=== PATIENT | female | born 1935 | race Caucasian/White ===

== ENCOUNTER 2016-08-02 16:05 | Inpatient (IN) | payer OTHER ==
[~2016-08-02] VITALS: Ht 162.6 cm; Wt 72.1 kg
[2016-08-02 17:46] VITALS: BP 143/104
[2016-08-02 19:00] VITALS: BP 149/66
--- NOTE | 2016-08-02 19:57 | PDOC1 ---
History and Physical Source Source: Patient Past Medical History Cardiovascular: AFIB Family History Family History: Other (unknown to pt) Social History Smoke: No ALCOHOL: none Current Medications Current Medications Current Medications Medications (Trade) Dose Ordered Sig/Juan Start Time Stop Time Status Last Admin Dose Admin Sodium Chloride (Iv Sodium Chloride 0.9% 1000ml Bag) 1,000 ml @ 75 mls/hr [id number] 08/02/16 19:15 Allergies Allergies Allergies Coded Allergies Type Severity Reaction Last Updated Verified No Known Drug Allergies 08/02/16 No ROS Review of System CONSTITUTIONAL: fever or chills EYES: No recent changes SKIN: No rash or itching CARDIOVASCULAR: No chest pain, syncope, palpitations, or edema RESPIRATORY: No SOB or cough GASTROINTESTINAL: No nausea, vomiting or abdominal pain NEUROLOGICAL: No headaches or weakness ENDOCRINE: No cold or heat intolerance GENITOURINARY: frequency of urination MUSCULOSKELETAL: No back pain or joint pain LYMPHATICS: No enlarged lymph nodes PSYCHIATRIC: No anxiety or depression Physical Exam Physical Exam GEN.: No apparent distress. Alert and oriented. HEENT: Head is normocephalic, atraumatic NECK: Supple. LUNGS: Clear to auscultation. HEART: RRR, S1, S2 present. Peripheral pulses intact ABDOMEN: Soft, nontender. Positive bowel sounds. EXTREMITIES: Without any cyanosis. NEUROLOGIC: Normal speech, normal tone PSYCHIATRIC: Normal affect, normal mood. SKIN: Vitals Vitals Vital Signs Date Time Temp Pulse Resp B/P Pulse Ox O2 Delivery O2 Flow Rate FiO2 08/02/16 17:46 97.6 85 16 143/104 99 Room Air 97.6 VTE Prophylaxis Ordered VTE Prophylaxis Devices: No VTE Pharmacological Prophylaxi: No ABDI LEWIS MD August 02, 2016 19:57
[2016-08-02] MEDS ORDERED: ALBUTEROL SULFATE 2.5 MG/3 ML NEBU. NEB PRN (20:00)
[2016-08-02] MEDS ORDERED: ONDANSETRON PF 4 MG/2 ML VIAL. IV PRN (20:00)
[2016-08-02] MEDS ORDERED: SODIUM POLYSTYRENE SULFONATE 15 GM/60 ML ORAL.SUSP. PO ONE (20:00)
[2016-08-02] MEDS ORDERED: HYDROCODONE/APAP 5/325MG TABLET. PO PRN (20:00)
[2016-08-02] MEDS ORDERED: hydrALAZINE 20 MG/ML VIAL. IVP PRN (20:00)
[2016-08-02] MEDS ORDERED: LEVOFLOXACIN PER PHARMACY MC PRN (20:00)
[2016-08-02 20:06] LABS: BASO % 0 % (0-3); EOS % 2 % (0-3); HEMATOCRIT 29.1 % (36.0-47.0); HEMOGLOBIN 9.9 g/dL (12.0-15.5); LYMPH # 0.9 x10^3/uL (1.0-4.8); LYMPH % 7 % (24-48); MEAN CORPUSCULAR HEMOGLOBIN 30 pg (25-35); MEAN CORPUSCULAR HGB CONC 34 g/dL (31-37); MEAN CORPUSCULAR VOLUME 88 fL (79-100); MONO % 12 % (0-9); NEUT % 79 % (31-73); PLATELET COUNT 254 x10^3/uL (140-400); RED BLOOD COUNT 3.29 x10^6/uL (3.50-5.40); RED CELL DISTRIBUTION WIDTH 14.7 % (11.5-14.5); WHITE BLOOD COUNT 12.3 x10^3/uL (4.0-11.0)
[2016-08-02 20:20] LABS: ALBUMIN 2.9 g/dL (3.4-5.0); ALBUMIN/GLOBULIN RATIO 0.7 (1.0-1.7); CALCIUM 8.8 mg/dL (8.5-10.1); CREATININE 1.9 mg/dL (0.6-1.0); GFR 25.3; POTASSIUM 4.2 mmol/L (3.5-5.1); TOTAL BILIRUBIN 0.5 mg/dL (0.2-1.0); TOTAL PROTEIN 7.2 g/dL (6.4-8.2)
[2016-08-02] MEDS: IV NORMAL SALINE 1000ML BAG 1,000 ML IV SCH (20:35)
[2016-08-02 20:53] LABS: BILIRUBIN,URINE NEGATIVE (NEG); GLUCOSE,URINE NEGATIVE (NEG); NITRITE,URINE NEGATIVE (NEG); PH,URINE 6.5; PROTEIN,URINE 30 mg/dL (NEG-TRACE); UROBILINOGEN,URINE 0.2 mg/dL (0.2 mg/dL)
[2016-08-02 20:59] LABS: BACTERIA,URINE MANY /HPF (0-FEW); SQUAMOUS EPITHELIAL CELL,UR MOD /LPF; WBC,URINE TNTC /HPF (0-4)
[2016-08-02 21:09] LABS: CALCIUM 8.6 mg/dL (8.5-10.1); GFR 23.9; POTASSIUM 4.2 mmol/L (3.5-5.1)
--- NOTE | 2016-08-02 22:05 | HP ---
ADMIT DATE: 08/02/2016 CHIEF COMPLAINT: Fever, chills, and risk of falls. HISTORY OF PRESENT ILLNESS: An 81-year-old female patient presented to the primary care doctor's office, Dr. Oakley, for complaints of fevers, chills, and not feeling well for 2 days. Reportedly, the patient is having symptoms everyday and symptoms getting better with ibuprofen. She had an initial workup showed some acute kidney injury with mild hyperkalemia. PCP office called me to admit the patient for increased risk of falls and suspected urinary tract infections and dehydration. Upon my examination, the patient is resting comfortably in the chair. Denies any active symptoms; however, she admitted that she is having fevers and some urinary frequency. Denies any other symptoms. She is not able to provide me good past history; however, she had some atrial fibrillation, was on a blood thinner, but she did not recall her home medications, she will get the list tomorrow morning. PAST MEDICAL HISTORY: Hypertension and AFib. FAMILY HISTORY: Unknown. PAST SURGICAL HISTORY: Unknown. SOCIAL HISTORY: No smoking, no alcohol, no drug abuse. Lives with . No sick contacts around her. LABORATORY DATA: Sodium is 130, potassium is 5.4, chloride is 102, carbon dioxide 23, calcium is 9.5, protein is 7.1, alkaline phosphatase 55, AST 16, ALT 10, creatinine 1.72, BUN is 32, glucose 97, and GFR is 27. ASSESSMENT: 1. Suspected urinary tract infections. 2. Acute kidney injury, unknown baseline, creatinine 1.72. 3. Physical debility and fall risk. 4. Dehydration. 5. Hyperkalemia. Potassium 5.4 at arrival. 6. Severe Hyponatremia PLAN: 1. We will continue IV hydration 75 mL hour and start her on Levaquin, pharmacy to dose for suspected urinary tract infections. Urine cultures and UA has been ordered.consult nephro, monitor Na in am , no mental state changes. 2. Physical therapy and occupation therapy. 3. The patient will bring her home medications list in the a.m. 4. I will give her Kayexalate one-time dose. Repeat potassium in a.m. 5. Also ordered CBC and CMP now. 6. Supportive care. 7. prognosis guarded. ABDI LEWIS MD DR: GLORIA/marie JOB#: [id number] / [id number] JAMIE
[2016-08-02 23:20] VITALS: BP 144/62
[2016-08-03 02:57] VITALS: BP 128/64
--- NOTE | 2016-08-03 05:42 | ACF ---
Admission Forms Criteria URINARY COMPLICATIONS Clinical Indications for Inpatient Care (Place 'X' for any and all applicable criteria): Ongoing inpatient care may be indicated for urinary complications with ANY ONE of the following: [X]I. Urinary tract infection requiring inpatient care as indicated by ANY ONE of the following(8)(19)(20): [ ]a) Severe symptoms (eg, high fever, severe pain) [ ]b) Vomiting or dehydration requiring ongoing inpatient care [X]c) IV antibiotic needs that cannot be managed at lower level of care [ ]d) Hemodynamic instability [ ]e) Obstruction of collecting system by stone or tumor [ ]II. Urinary retention requiring drainage or surgery (3)(4)(5)(17)(18) [ ]III. Renal failure (Use Renal Failure Criteria for further information.) [ ]IV. Oliguria(30) [ ]V. Post obstructive diuresis requiring close monitoring of urine output and intravenous compensation for excessive fluid losses(33) Extended stay beyond goal length of stay for primary condition may be needed until ALL of the following are present(3)(4)(5)(8): [ ]a) Renal function (creatinine) at baseline, or daily decreases in creatinine consistent with renal function return [ ]b) Voiding adequately or with urinary catheter or percutaneous suprapubic tube and management regimen in place that is performable at lower level of care. [ ]c) Urine output adequate [ ]d) Fever absent or resolving [ ]e) Infection absent or treatable at next level of care The original [employer] content created by [employer] has been revised. The portions of the content which have been revised are identified through the use of italic text or in bold, and [facility] has neither reviewed nor approved the modified material. All other unmodified content is copyright [employer] Please see references footnoted in the original [facility] edition 2016 Admission Criteria Met?: Yes DEEPALI LUNA August 03, 2016 05:42
[2016-08-03] MEDS: IV NORMAL SALINE 1000ML BAG 1,000 ML IV SCH ×3 (06:22→20:43)
[2016-08-03] MEDS: ACETAMINOPHEN 325 MG TABLET. PO PRN ×3 (06:31→20:41)
[2016-08-03 07:00] VITALS: BP 136/53
[2016-08-03 07:16] LABS: BASO % 0 % (0-3); EOS % 1 % (0-3); HEMATOCRIT 27.6 % (36.0-47.0); HEMOGLOBIN 9.4 g/dL (12.0-15.5); LYMPH # 0.8 x10^3/uL (1.0-4.8); LYMPH % 7 % (24-48); MEAN CORPUSCULAR HEMOGLOBIN 30 pg (25-35); MEAN CORPUSCULAR HGB CONC 34 g/dL (31-37); MEAN CORPUSCULAR VOLUME 89 fL (79-100); MONO % 13 % (0-9); NEUT % 78 % (31-73); PLATELET COUNT 235 x10^3/uL (140-400); RED BLOOD COUNT 3.09 x10^6/uL (3.50-5.40); RED CELL DISTRIBUTION WIDTH 14.3 % (11.5-14.5); WHITE BLOOD COUNT 10.6 x10^3/uL (4.0-11.0)
[2016-08-03 07:26] LABS: CALCIUM 7.9 mg/dL (8.5-10.1); CREATININE 1.8 mg/dL (0.6-1.0); GFR 26.9; POTASSIUM 3.9 mmol/L (3.5-5.1)
[2016-08-03 11:00] VITALS: BP 140/56
[2016-08-03] MEDS ORDERED: MAGNESIUM SULFATE 2GM 50 ML IV PRN (12:30)
--- NOTE | 2016-08-03 12:33 | PDOC2 ---
CONSULT Date of Consult Date of Consult DATE: 08/03/16 TIME: 12:32 Reason for Consult Reason for Consult: HypoNAtremia / AMY Referring Physician Referring Physician: Dr Duron Identification/Chief Complaint Chief Complaint confusion, falls Problems: Source Source: Patient History of Present Illness Reason for Visit: as dictated Past Medical History Cardiovascular: AFIB Past Surgical History Past Surgical History: Pacemaker, Cystoscopy Family History Family History: Other (unknown to pt) Social History No ALCOHOL: none Drugs: None Lives: with Family Current Problem List Problem List Problems Medical Problems: (1) Dehydration Status: Acute (2) Hyperkalemia Status: Acute (3) Hyponatremia Status: Acute Current Medications Current Medications Current Medications Sodium Chloride (Iv Sodium Chloride 0.9% 1000ml Bag) 1,000 ml @ 125 mls/hr Q8H IV Last administered on 08/03/16 06:22; Start 08/02/16 at 19:15 Acetaminophen (Tylenol) 325 mg PRN Q6HRS PRN PO MILD PAIN / TEMP Last administered on 08/03/16 06:31; Start 08/02/16 at 20:00 Acetaminophen/ Hydrocodone Bitart (Lortab 5/325) 1 tab PRN Q6HRS PRN PO MODERATE TO SEVERE PAIN; Start 08/02/16 at 20:00 Hydralazine HCl (Apresoline) 10 mg PRN Q4HRS PRN IVP ELEVATED BP, SEE COMMENTS ; Start 08/02/16 at 20:00 Ondansetron HCl (Zofran) 4 mg PRN Q8HRS PRN IV NAUSEA/VOMITING; Start 08/02/16 at 20:00; Stop 08/03/16 at 08:59; Status DC Albuterol Sulfate (Ventolin Neb Soln) 2.5 mg PRN Q4HRS PRN NEB SHORTNESS OF BREATH; Start 08/02/16 at 20:00 Sodium Polystyrene Sulfonate (Kayexalate) 15 gm 1X ONCE PO Last administered on 08/02/16 22:22; Start 08/02/16 at 20:00; Stop 08/02/16 at 20:02; Status DC Levofloxacin/ Dextrose 1 each 1 each PRN DAILY PRN MC SEE COMMENTS; Start at 20:00 Levofloxacin/ Dextrose (LEVAQUIN 250mg PREMIX) 50 ml @ 50 mls/hr Q24H IV Last administered on 08/02/16t 22:24; Start 08/02/16 at 21:00 Ondansetron HCl (Zofran) 4 mg PRN Q6HRS PRN IV NAUSEA/VOMITING; Start 08/03/16 at 20:00 Allergies Allergies: Coded Allergies: No Known Drug Allergies (Unverified , 08/02/16) ROS Review of System GEN: + Fevers + Chills + weakness EYES: no new Visual Complaints ENT: no EN Drainage no Hearing deficiets CVS: no Orthopnea no CP RESP: no SOB no ROSARIO GI: min Nausea no Vomiting : + current Dysuria occ Urgency HEME: no easy bruising no Palp Ly Nodes NEURO no Focal Weakness no Sz PSYCH: no Suicidal Ideation no Depression SKIN: no Rashes ENDO: no Polyuria or Polydipsia no Hot/Cold Intolerance MU SK: ch Arthraigia min Myalgia Physical Exam Physical Exam General Appearance: Awake Alert Oriented x 3 In no Distress Eyes: VIsion Unchanged Conjunctiva Normal EN: No EN Drainage Mucous Memb. moist Neck: no JVD no JVP Supple no Thyromegaly CVS: S1 S2 ?soft Murmur No Gallop No Rub no Edema Resp: no Rales no Rhonchi no Acc. Muscle use GI: BAS +ve NO Bruit Non Tender Non Distended : no CVA tenderness; ?min Suprapubic Tenderness SKIN: no Rashes Breast Exam deferred Mu.Sk: Adequate ROM no Muscle Atrophy Heme: Unable to palpate Obvious LAD no palp Splenomegaly NEURO: Good Strength and Tone Cranial Nerves II - XII grossly intact Psych: not Depressed no Active hallucination Vital Signs Vital Signs Date Time Temp Pulse Resp B/P Pulse Ox O2 Delivery O2 Flow Rate FiO2 08/03/16 11:00 97.4 60 12 140/56 99 Room Air 97.4 Assessment & Plan ARF/ ? AIN and Pyelo. Other etios including Rhabdo due to falls, Vol depeltion, Abx asso AIN etc cannot be ruled out. Current FLuid and E-lyte status does not necessitate emergent need for Dialysis. Will re-evaluate for Dialysis in am SEv HypoNatremia - suspect due to Vol depeltion - Check CXR, responding to IV NS Protein Gap - will check PEPs HypoALb - check PreAlb ^K - resolved with Kayexalate. Pt is on Amiloride (unclear etio) and ARB at home Anemia: check Iron; may need Epogen Transfuse with next HD as needed. HTN: Current BP meds reviewed. See orders for changes. UTI - await C and S Discussed Plan of Care and prognosis etc. at length with family. Labs Labs Laboratory Tests Test 08/02/16 19:25 08/02/16 20:00 08/02/16 20:50 08/03/16 07:00 White Blood Count 12.3x10^3/uL (4.0-11.0) 10.6x10^3/uL (4.0-11.0) Red Blood Count 3.29x10^6/uL (3.50-5.40) 3.09x10^6/uL (3.50-5.40) Hemoglobin 9.9g/dL (12.0-15.5) 9.4g/dL (12.0-15.5) Hematocrit 29.1% (36.0-47.0) 27.6% (36.0-47.0) Mean Corpuscular Volume 88fL (79-100) 89fL (79-100) Mean Corpuscular Hemoglobin 30pg (25-35) 30pg (25-35) Mean Corpuscular Hemoglobin Concent 34g/dL (31-37) 34g/dL (31-37) Red Cell Distribution Width 14.7% (11.5-14.5) 14.3% (11.5-14.5) Platelet Count 254x10^3/uL (140-400) 235x10^3/uL (140-400) Neutrophils (%) (Auto) 79% (31-73) 78% (31-73) Lymphocytes (%) (Auto) 7% (24-48) 7% (24-48) Monocytes (%) (Auto) 12% (0-9) 13% (0-9) Eosinophils (%) (Auto) 2% (0-3) 1% (0-3) Basophils (%) (Auto) 0% (0-3) 0% (0-3) Neutrophils # (Auto) 9.7x10^3uL (1.8-7.7) 8.3x10^3uL (1.8-7.7) Lymphocytes # (Auto) 0.9x10^3/uL (1.0-4.8) 0.8x10^3/uL (1.0-4.8) Monocytes # (Auto) 1.4x10^3/uL (0.0-1.1) 1.4x10^3/uL (0.0-1.1) Eosinophils # (Auto) 0.2x10^3/uL (0.0-0.7) 0.1x10^3/uL (0.0-0.7) Basophils # (Auto) 0.0x10^3/uL (0.0-0.2) 0.0x10^3/uL (0.0-0.2) Sodium Level 119mmol/L (136-145) 119mmol/L (136-145) 123mmol/L (136-145) Potassium Level 4.2mmol/L (3.5-5.1) 4.2mmol/L (3.5-5.1) 3.9mmol/L (3.5-5.1) Chloride Level 89mmol/L (98-107) 90mmol/L (98-107) 93mmol/L (98-107) Carbon Dioxide Level 22mmol/L (21-32) 22mmol/L (21-32) 21mmol/L (21-32) Anion Gap 8 (6-14) 7 (6-14) 9 (6-14) Blood Urea Nitrogen 28mg/dL (7-20) 27mg/dL (7-20) 25mg/dL (7-20) Creatinine 1.9mg/dL (0.6-1.0) 2.0mg/dL (0.6-1.0) 1.8mg/dL (0.6-1.0) Estimated GFR (Cockcroft-Gault) 25.3 23.9 26.9 BUN/Creatinine Ratio 15 (6-20) Glucose Level 126mg/dL (70-99) 131mg/dL (70-99) 93mg/dL (70-99) Calcium Level 8.8mg/dL (8.5-10.1) 8.6mg/dL (8.5-10.1) 7.9mg/dL (8.5-10.1) Total Bilirubin 0.5mg/dL (0.2-1.0) Aspartate Amino Transf (AST/SGOT) 18U/L (15-37) Alanine Aminotransferase (ALT/SGPT) 17U/L (14-59) Alkaline Phosphatase 66U/L (46-116) Total Protein 7.2g/dL (6.4-8.2) Albumin 2.9g/dL (3.4-5.0) Albumin/Globulin Ratio 0.7 (1.0-1.7) Urine Collection Type Unknown Urine Color Yellow Urine Clarity Turbid Urine pH 6.5 Urine Specific [place] <=1.005 Urine Protein 30mg/dL (NEG-TRACE) Urine Glucose (UA) Negativemg/dL (NEG) Urine Ketones (Stick) Negativemg/dL (NEG) Urine Blood Moderate (NEG) Urine Nitrite Negative (NEG) Urine Bilirubin Negative (NEG) Urine Urobilinogen Dipstick 0.2mg/dL (0.2 mg/dL) Urine Leukocyte Esterase Large (NEG) Urine RBC 1-2/HPF (0-2) Urine WBC Tntc/HPF (0-4) Urine Squamous Epithelial Cells Mod/LPF Urine Bacteria Many/HPF (0-FEW) Urine Mucus Mod/LPF Laboratory Tests Test 08/02/16 19:25 08/02/16 20:00 08/02/16 20:50 08/03/16 07:00 White Blood Count 12.3x10^3/uL (4.0-11.0) 10.6x10^3/uL (4.0-11.0) Red Blood Count 3.29x10^6/uL (3.50-5.40) 3.09x10^6/uL (3.50-5.40) Hemoglobin 9.9g/dL (12.0-15.5) 9.4g/dL (12.0-15.5) Hematocrit 29.1% (36.0-47.0) 27.6% (36.0-47.0) Mean Corpuscular Volume 88fL (79-100) 89fL (79-100) Mean Corpuscular Hemoglobin 30pg (25-35) 30pg (25-35) Mean Corpuscular Hemoglobin Concent 34g/dL (31-37) 34g/dL (31-37) Red Cell Distribution Width 14.7% (11.5-14.5) 14.3% (11.5-14.5) Platelet Count 254x10^3/uL (140-400) 235x10^3/uL (140-400) Neutrophils (%) (Auto) 79% (31-73) 78% (31-73) Lymphocytes (%) (Auto) 7% (24-48) 7% (24-48) Monocytes (%) (Auto) 12% (0-9) 13% (0-9) Eosinophils (%) (Auto) 2% (0-3) 1% (0-3) Basophils (%) (Auto) 0% (0-3) 0% (0-3) Neutrophils # (Auto) 9.7x10^3uL (1.8-7.7) 8.3x10^3uL (1.8-7.7) Lymphocytes # (Auto) 0.9x10^3/uL (1.0-4.8) 0.8x10^3/uL (1.0-4.8) Monocytes # (Auto) 1.4x10^3/uL (0.0-1.1) 1.4x10^3/uL (0.0-1.1) Eosinophils # (Auto) 0.2x10^3/uL (0.0-0.7) 0.1x10^3/uL (0.0-0.7) Basophils # (Auto) 0.0x10^3/uL (0.0-0.2) 0.0x10^3/uL (0.0-0.2) Sodium Level 119mmol/L (136-145) 119mmol/L (136-145) 123mmol/L (136-145) Potassium Level 4.2mmol/L (3.5-5.1) 4.2mmol/L (3.5-5.1) 3.9mmol/L (3.5-5.1) Chloride Level 89mmol/L (98-107) 90mmol/L (98-107) 93mmol/L (98-107) Carbon Dioxide Level 22mmol/L (21-32) 22mmol/L (21-32) 21mmol/L (21-32) Anion Gap 8 (6-14) 7 (6-14) 9 (6-14) Blood Urea Nitrogen 28mg/dL (7-20) 27mg/dL (7-20) 25mg/dL (7-20) Creatinine 1.9mg/dL (0.6-1.0) 2.0mg/dL (0.6-1.0) 1.8mg/dL (0.6-1.0) Estimated GFR (Cockcroft-Gault) 25.3 23.9 26.9 BUN/Creatinine Ratio 15 (6-20) Glucose Level 126mg/dL (70-99) 131mg/dL (70-99) 93mg/dL (70-99) Calcium Level 8.8mg/dL (8.5-10.1) 8.6mg/dL (8.5-10.1) 7.9mg/dL (8.5-10.1) Total Bilirubin 0.5mg/dL (0.2-1.0) Aspartate Amino Transf (AST/SGOT) 18U/L (15-37) Alanine Aminotransferase (ALT/SGPT) 17U/L (14-59) Alkaline Phosphatase 66U/L (46-116) Total Protein 7.2g/dL (6.4-8.2) Albumin 2.9g/dL (3.4-5.0) Albumin/Globulin Ratio 0.7 (1.0-1.7) Urine Collection Type Unknown Urine Color Yellow Urine Clarity Turbid Urine pH 6.5 Urine Specific [place] <=1.005 Urine Protein 30mg/dL (NEG-TRACE) Urine Glucose (UA) Negativemg/dL (NEG) Urine Ketones (Stick) Negativemg/dL (NEG) Urine Blood Moderate (NEG) Urine Nitrite Negative (NEG) Urine Bilirubin Negative (NEG) Urine Urobilinogen Dipstick 0.2mg/dL (0.2 mg/dL) Urine Leukocyte Esterase Large (NEG) Urine RBC 1-2/HPF (0-2) Urine WBC Tntc/HPF (0-4) Urine Squamous Epithelial Cells Mod/LPF Urine Bacteria Many/HPF (0-FEW) Urine Mucus Mod/LPF DAVIE STUART MD August 03, 2016 12:33
[2016-08-03 13:02] LABS: URIC ACID 3.6 mg/dL (2.6-6.0)
--- NOTE | 2016-08-03 13:32 | RAD ---
Renal ultrasound, 08/03/2016: History: Acute on chronic renal failure The right kidney measures 10.0 cm in length while the left kidney measures 10.8 cm. There is mild bilateral renal cortical scarring. No renal mass is seen. There is no evidence of hydronephrosis. Limited views of the partially filled urinary bladder show no abnormality. IMPRESSION: 1. Mild renal cortical scarring. 2. No evidence of renal obstruction.
[2016-08-03 13:35] LABS: % SAT IRON 5 % (15-34); IRON,SERUM 15 ug/dL (50-170)
--- NOTE | 2016-08-03 14:00 | PDOC ---
PROGRESS NOTES Chief Complaint Chief Complaint 1. Suspected urinary tract infections. 2. Acute kidney injury, unknown baseline, creatinine 1.72. 3. Physical debility and fall risk. 4. Dehydration. 5. Hyperkalemia. Potassium 5.4 at arrival. 6. Severe Hyponatremia History of Present Illness History of Present Illness na 123 Crea 1,8 Renal consulted Renal US just done at bedside On elliquis for indwelling pacer - placed 2 yrs ago Still having loose stools -had kayexylate for the hyperkal PLAn: CPM ff up renal US LAbs haydee If better, [facility] Vit[facility] Vitals Vital Signs Date Time Temp Pulse Resp B/P Pulse Ox O2 Delivery O2 Flow Rate FiO2 08/03/16 11:00 97.4 60 12 140/56 99 Room Air 97.4 Physical Exam General: Alert, Oriented X3, Cooperative, No acute distress Heart: Regular rate, Normal S1, Normal S2, No murmurs Lungs: Clear Abdomen: Normal bowel sounds, Soft, No tenderness, No hepatosplenomegaly Extremities: No clubbing, No cyanosis, No edema, Normal pulses Skin: No rashes Labs LABS Laboratory Tests Test 08/02/16 19:25 08/02/16 20:00 08/02/16 20:50 08/03/16 07:00 White Blood Count 12.3x10^3/uL (4.0-11.0) 10.6x10^3/uL (4.0-11.0) Red Blood Count 3.29x10^6/uL (3.50-5.40) 3.09x10^6/uL (3.50-5.40) Hemoglobin 9.9g/dL (12.0-15.5) 9.4g/dL (12.0-15.5) Hematocrit 29.1% (36.0-47.0) 27.6% (36.0-47.0) Mean Corpuscular Volume 88fL (79-100) 89fL (79-100) Mean Corpuscular Hemoglobin 30pg (25-35) 30pg (25-35) Mean Corpuscular Hemoglobin Concent 34g/dL (31-37) 34g/dL (31-37) Red Cell Distribution Width 14.7% (11.5-14.5) 14.3% (11.5-14.5) Platelet Count 254x10^3/uL (140-400) 235x10^3/uL (140-400) Neutrophils (%) (Auto) 79% (31-73) 78% (31-73) Lymphocytes (%) (Auto) 7% (24-48) 7% (24-48) Monocytes (%) (Auto) 12% (0-9) 13% (0-9) Eosinophils (%) (Auto) 2% (0-3) 1% (0-3) Basophils (%) (Auto) 0% (0-3) 0% (0-3) Neutrophils # (Auto) 9.7x10^3uL (1.8-7.7) 8.3x10^3uL (1.8-7.7) Lymphocytes # (Auto) 0.9x10^3/uL (1.0-4.8) 0.8x10^3/uL (1.0-4.8) Monocytes # (Auto) 1.4x10^3/uL (0.0-1.1) 1.4x10^3/uL (0.0-1.1) Eosinophils # (Auto) 0.2x10^3/uL (0.0-0.7) 0.1x10^3/uL (0.0-0.7) Basophils # (Auto) 0.0x10^3/uL (0.0-0.2) 0.0x10^3/uL (0.0-0.2) Sodium Level 119mmol/L (136-145) 119mmol/L (136-145) 123mmol/L (136-145) Potassium Level 4.2mmol/L (3.5-5.1) 4.2mmol/L (3.5-5.1) 3.9mmol/L (3.5-5.1) Chloride Level 89mmol/L (98-107) 90mmol/L (98-107) 93mmol/L (98-107) Carbon Dioxide Level 22mmol/L (21-32) 22mmol/L (21-32) 21mmol/L (21-32) Anion Gap 8 (6-14) 7 (6-14) 9 (6-14) Blood Urea Nitrogen 28mg/dL (7-20) 27mg/dL (7-20) 25mg/dL (7-20) Creatinine 1.9mg/dL (0.6-1.0) 2.0mg/dL (0.6-1.0) 1.8mg/dL (0.6-1.0) Estimated GFR (Cockcroft-Gault) 25.3 23.9 26.9 BUN/Creatinine Ratio 15 (6-20) Glucose Level 126mg/dL (70-99) 131mg/dL (70-99) 93mg/dL (70-99) Calcium Level 8.8mg/dL (8.5-10.1) 8.6mg/dL (8.5-10.1) 7.9mg/dL (8.5-10.1) Total Bilirubin 0.5mg/dL (0.2-1.0) Aspartate Amino Transf (AST/SGOT) 18U/L (15-37) Alanine Aminotransferase (ALT/SGPT) 17U/L (14-59) Alkaline Phosphatase 66U/L (46-116) Total Protein 7.2g/dL (6.4-8.2) Albumin 2.9g/dL (3.4-5.0) Albumin/Globulin Ratio 0.7 (1.0-1.7) Urine Collection Type Unknown Urine Color Yellow Urine Clarity Turbid Urine pH 6.5 Urine Specific [place] <=1.005 Urine Protein 30mg/dL (NEG-TRACE) Urine Glucose (UA) Negativemg/dL (NEG) Urine Ketones (Stick) Negativemg/dL (NEG) Urine Blood Moderate (NEG) Urine Nitrite Negative (NEG) Urine Bilirubin Negative (NEG) Urine Urobilinogen Dipstick 0.2mg/dL (0.2 mg/dL) Urine Leukocyte Esterase Large (NEG) Urine RBC 1-2/HPF (0-2) Urine WBC Tntc/HPF (0-4) Urine Squamous Epithelial Cells Mod/LPF Urine Bacteria Many/HPF (0-FEW) Urine Mucus Mod/LPF Uric Acid 3.6mg/dL (2.6-6.0) Iron Level 15ug/dL (50-170) Total Iron Binding Capacity 310ug/dL (250-450) Iron Saturation 5% (15-34) Creatine Kinase 52U/L (26-192) Review of Systems Review of Systems loose stools, all else is neg Assessment and Plan Assessmemt and Plan Problems Medical Problems: (1) Dehydration Status: Acute (2) Hyperkalemia Status: Acute (3) Hyponatremia Status: Acute Problems: Comment Review of Relevant I have reviewed the following items elie (where applicable) has been applied. Labs Laboratory Tests Test 08/02/16 19:25 08/02/16 20:00 08/02/16 20:50 08/03/16 07:00 White Blood Count 12.3x10^3/uL (4.0-11.0) 10.6x10^3/uL (4.0-11.0) Red Blood Count 3.29x10^6/uL (3.50-5.40) 3.09x10^6/uL (3.50-5.40) Hemoglobin 9.9g/dL (12.0-15.5) 9.4g/dL (12.0-15.5) Hematocrit 29.1% (36.0-47.0) 27.6% (36.0-47.0) Mean Corpuscular Volume 88fL (79-100) 89fL (79-100) Mean Corpuscular Hemoglobin 30pg (25-35) 30pg (25-35) Mean Corpuscular Hemoglobin Concent 34g/dL (31-37) 34g/dL (31-37) Red Cell Distribution Width 14.7% (11.5-14.5) 14.3% (11.5-14.5) Platelet Count 254x10^3/uL (140-400) 235x10^3/uL (140-400) Neutrophils (%) (Auto) 79% (31-73) 78% (31-73) Lymphocytes (%) (Auto) 7% (24-48) 7% (24-48) Monocytes (%) (Auto) 12% (0-9) 13% (0-9) Eosinophils (%) (Auto) 2% (0-3) 1% (0-3) Basophils (%) (Auto) 0% (0-3) 0% (0-3) Neutrophils # (Auto) 9.7x10^3uL (1.8-7.7) 8.3x10^3uL (1.8-7.7) Lymphocytes # (Auto) 0.9x10^3/uL (1.0-4.8) 0.8x10^3/uL (1.0-4.8) Monocytes # (Auto) 1.4x10^3/uL (0.0-1.1) 1.4x10^3/uL (0.0-1.1) Eosinophils # (Auto) 0.2x10^3/uL (0.0-0.7) 0.1x10^3/uL (0.0-0.7) Basophils # (Auto) 0.0x10^3/uL (0.0-0.2) 0.0x10^3/uL (0.0-0.2) Sodium Level 119mmol/L (136-145) 119mmol/L (136-145) 123mmol/L (136-145) Potassium Level 4.2mmol/L (3.5-5.1) 4.2mmol/L (3.5-5.1) 3.9mmol/L (3.5-5.1) Chloride Level 89mmol/L (98-107) 90mmol/L (98-107) 93mmol/L (98-107) Carbon Dioxide Level 22mmol/L (21-32) 22mmol/L (21-32) 21mmol/L (21-32) Anion Gap 8 (6-14) 7 (6-14) 9 (6-14) Blood Urea Nitrogen 28mg/dL (7-20) 27mg/dL (7-20) 25mg/dL (7-20) Creatinine 1.9mg/dL (0.6-1.0) 2.0mg/dL (0.6-1.0) 1.8mg/dL (0.6-1.0) Estimated GFR (Cockcroft-Gault) 25.3 23.9 26.9 BUN/Creatinine Ratio 15 (6-20) Glucose Level 126mg/dL (70-99) 131mg/dL (70-99) 93mg/dL (70-99) Calcium Level 8.8mg/dL (8.5-10.1) 8.6mg/dL (8.5-10.1) 7.9mg/dL (8.5-10.1) Total Bilirubin 0.5mg/dL (0.2-1.0) Aspartate Amino Transf (AST/SGOT) 18U/L (15-37) Alanine Aminotransferase (ALT/SGPT) 17U/L (14-59) Alkaline Phosphatase 66U/L (46-116) Total Protein 7.2g/dL (6.4-8.2) Albumin 2.9g/dL (3.4-5.0) Albumin/Globulin Ratio 0.7 (1.0-1.7) Urine Collection Type Unknown Urine Color Yellow Urine Clarity Turbid Urine pH 6.5 Urine Specific [place] <=1.005 Urine Protein 30mg/dL (NEG-TRACE) Urine Glucose (UA) Negativemg/dL (NEG) Urine Ketones (Stick) Negativemg/dL (NEG) Urine Blood Moderate (NEG) Urine Nitrite Negative (NEG) Urine Bilirubin Negative (NEG) Urine Urobilinogen Dipstick 0.2mg/dL (0.2 mg/dL) Urine Leukocyte Esterase Large (NEG) Urine RBC 1-2/HPF (0-2) Urine WBC Tntc/HPF (0-4) Urine Squamous Epithelial Cells Mod/LPF Urine Bacteria Many/HPF (0-FEW) Urine Mucus Mod/LPF Uric Acid 3.6mg/dL (2.6-6.0) Iron Level 15ug/dL (50-170) Total Iron Binding Capacity 310ug/dL (250-450) Iron Saturation 5% (15-34) Creatine Kinase 52U/L (26-192) Laboratory Tests Test 08/02/16 19:25 08/02/16 20:00 08/02/16 20:50 08/03/16 07:00 White Blood Count 12.3x10^3/uL (4.0-11.0) 10.6x10^3/uL (4.0-11.0) Red Blood Count 3.29x10^6/uL (3.50-5.40) 3.09x10^6/uL (3.50-5.40) Hemoglobin 9.9g/dL (12.0-15.5) 9.4g/dL (12.0-15.5) Hematocrit 29.1% (36.0-47.0) 27.6% (36.0-47.0) Mean Corpuscular Volume 88fL (79-100) 89fL (79-100) Mean Corpuscular Hemoglobin 30pg (25-35) 30pg (25-35) Mean Corpuscular Hemoglobin Concent 34g/dL (31-37) 34g/dL (31-37) Red Cell Distribution Width 14.7% (11.5-14.5) 14.3% (11.5-14.5) Platelet Count 254x10^3/uL (140-400) 235x10^3/uL (140-400) Neutrophils (%) (Auto) 79% (31-73) 78% (31-73) Lymphocytes (%) (Auto) 7% (24-48) 7% (24-48) Monocytes (%) (Auto) 12% (0-9) 13% (0-9) Eosinophils (%) (Auto) 2% (0-3) 1% (0-3) Basophils (%) (Auto) 0% (0-3) 0% (0-3) Neutrophils # (Auto) 9.7x10^3uL (1.8-7.7) 8.3x10^3uL (1.8-7.7) Lymphocytes # (Auto) 0.9x10^3/uL (1.0-4.8) 0.8x10^3/uL (1.0-4.8) Monocytes # (Auto) 1.4x10^3/uL (0.0-1.1) 1.4x10^3/uL (0.0-1.1) Eosinophils # (Auto) 0.2x10^3/uL (0.0-0.7) 0.1x10^3/uL (0.0-0.7) Basophils # (Auto) 0.0x10^3/uL (0.0-0.2) 0.0x10^3/uL (0.0-0.2) Sodium Level 119mmol/L (136-145) 119mmol/L (136-145) 123mmol/L (136-145) Potassium Level 4.2mmol/L (3.5-5.1) 4.2mmol/L (3.5-5.1) 3.9mmol/L (3.5-5.1) Chloride Level 89mmol/L (98-107) 90mmol/L (98-107) 93mmol/L (98-107) Carbon Dioxide Level 22mmol/L (21-32) 22mmol/L (21-32) 21mmol/L (21-32) Anion Gap 8 (6-14) 7 (6-14) 9 (6-14) Blood Urea Nitrogen 28mg/dL (7-20) 27mg/dL (7-20) 25mg/dL (7-20) Creatinine 1.9mg/dL (0.6-1.0) 2.0mg/dL (0.6-1.0) 1.8mg/dL (0.6-1.0) Estimated GFR (Cockcroft-Gault) 25.3 23.9 26.9 BUN/Creatinine Ratio 15 (6-20) Glucose Level 126mg/dL (70-99) 131mg/dL (70-99) 93mg/dL (70-99) Calcium Level 8.8mg/dL (8.5-10.1) 8.6mg/dL (8.5-10.1) 7.9mg/dL (8.5-10.1) Total Bilirubin 0.5mg/dL (0.2-1.0) Aspartate Amino Transf (AST/SGOT) 18U/L (15-37) Alanine Aminotransferase (ALT/SGPT) 17U/L (14-59) Alkaline Phosphatase 66U/L (46-116) Total Protein 7.2g/dL (6.4-8.2) Albumin 2.9g/dL (3.4-5.0) Albumin/Globulin Ratio 0.7 (1.0-1.7) Urine Collection Type Unknown Urine Color Yellow Urine Clarity Turbid Urine pH 6.5 Urine Specific [place] <=1.005 Urine Protein 30mg/dL (NEG-TRACE) Urine Glucose (UA) Negativemg/dL (NEG) Urine Ketones (Stick) Negativemg/dL (NEG) Urine Blood Moderate (NEG) Urine Nitrite Negative (NEG) Urine Bilirubin Negative (NEG) Urine Urobilinogen Dipstick 0.2mg/dL (0.2 mg/dL) Urine Leukocyte Esterase Large (NEG) Urine RBC 1-2/HPF (0-2) Urine WBC Tntc/HPF (0-4) Urine Squamous Epithelial Cells Mod/LPF Urine Bacteria Many/HPF (0-FEW) Urine Mucus Mod/LPF Uric Acid 3.6mg/dL (2.6-6.0) Iron Level 15ug/dL (50-170) Total Iron Binding Capacity 310ug/dL (250-450) Iron Saturation 5% (15-34) Creatine Kinase 52U/L (26-192) Medications Current Medications Sodium Chloride (Iv Sodium Chloride 0.9% 1000ml Bag) 1,000 ml @ 125 mls/hr Q8H IV Last administered on 08/03/16 06:22; Start 08/02/16 at 19:15 Acetaminophen (Tylenol) 325 mg PRN Q6HRS PRN PO MILD PAIN / TEMP Last administered on 08/03/16 13:50; Start 08/02/16 at 20:00 Acetaminophen/ Hydrocodone Bitart (Lortab 5/325) 1 tab PRN Q6HRS PRN PO MODERATE TO SEVERE PAIN; Start 08/02/16 at 20:00 Hydralazine HCl (Apresoline) 10 mg PRN Q4HRS PRN IVP ELEVATED BP, SEE COMMENTS ; Start 08/02/16 at 20:00 Ondansetron HCl (Zofran) 4 mg PRN Q8HRS PRN IV NAUSEA/VOMITING; Start 08/02/16 at 20:00; Stop 08/03/16 at 08:59; Status DC Albuterol Sulfate (Ventolin Neb Soln) 2.5 mg PRN Q4HRS PRN NEB SHORTNESS OF BREATH; Start 08/02/16 at 20:00 Sodium Polystyrene Sulfonate (Kayexalate) 15 gm 1X ONCE PO Last administered on 08/02/16 22:22; Start 08/02/16 at 20:00; Stop 08/02/16 at 20:02; Status DC Levofloxacin/ Dextrose 1 each 1 each PRN DAILY PRN MC SEE COMMENTS; Start at 20:00 Levofloxacin/ Dextrose (LEVAQUIN 250mg PREMIX) 50 ml @ 50 mls/hr Q24H IV Last administered on 5/2/17at 22:24; Start 08/02/16 at 21:00 Ondansetron HCl 4 mg 4 mg PRN Q6HRS PRN IV NAUSEA/VOMITING; Start 08/03/16 at 20 :00 Magnesium Sulfate/ Dextrose (Magnesium Sulfate PREMIX 2GM) 50 ml @ 25 mls/hr PRN DAILY PRN IV for Mag < 1.7 on am labs; Start 08/03/16 at 12:30 Vitals/I & O Vital Sign - Last 24 Hours 08/02/16 08/02/16 08/02/16 08/03/16 17:46 19:00 23:20 02:57 Temp 97.6 97.6 98.4 97.9 97.6 97.6 98.4 97.9 Pulse 85 62 69 66 Resp 16 18 18 18 B/P 143/104 149/66 144/62 128/64 Pulse Ox 99 96 98 99 O2 Delivery Room Air Room Air Room Air Room Air 08/03/16 08/03/16 07:00 11:00 Temp 98.6 97.4 98.6 97.4 Pulse 60 60 Resp 18 12 B/P 136/53 140/56 Pulse Ox 97 99 O2 Delivery Room Air Room Air Intake and Output 08/02/16 08/02/16 08/03/16 15:00 23:00 07:00 Output Total 500 ml Balance -500 ml YOEL RAIN MD August 03, 2016 14:00
[2016-08-03 14:47] LABS: BILIRUBIN,URINE NEGATIVE (NEG); GLUCOSE,URINE NEGATIVE (NEG); NITRITE,URINE NEGATIVE (NEG); PH,URINE 6.5; PROTEIN,URINE NEGATIVE (NEG-TRACE); UROBILINOGEN,URINE 0.2 mg/dL (0.2 mg/dL)
[2016-08-03 14:59] LABS: BACTERIA,URINE MODERATE /HPF (0-FEW); SQUAMOUS EPITHELIAL CELL,UR MOD /LPF; WBC,URINE TNTC /HPF (0-4)
[2016-08-03 15:00] VITALS: BP 142/60
[2016-08-03] MEDS ORDERED: AMIL5TAB2 PO (16:13)
[2016-08-03] MEDS ORDERED: CHOL200044 PO (16:16)
[2016-08-03] MEDS ORDERED: APIX5TAB PO (16:16)
[2016-08-03] MEDS ORDERED: LOSA25TA4 PO (16:26)
[2016-08-03] MEDS ORDERED: BRIM5DRO2 EACHEYE (16:26)
[2016-08-03] MEDS ORDERED: GLUC1TAB71 PO (16:26)
[2016-08-03] MEDS ORDERED: OMEP40CA5 PO (16:26)
[2016-08-03] MEDS ORDERED: PRAV40TA2 PO (16:26)
[2016-08-03] MEDS ORDERED: CRAN500C7 PO (16:26)
[2016-08-03] MEDS ORDERED: MAGN400T3 PO (16:26)
[2016-08-03] MEDS ORDERED: BYSTOLIC10 MG PO (16:26)
[2016-08-03] MEDS ORDERED: FLEC150T PO (16:26)
[2016-08-03] MEDS ORDERED: BRIM5DRO4 OP (16:26)
[2016-08-03 19:17] LABS: PREALBUMIN 10 mg/dL (9-32)
[2016-08-03 19:53] VITALS: BP 157/50
[2016-08-03] MEDS ORDERED: ONDANSETRON PF 4 MG/2 ML VIAL. IV PRN (20:00)
[2016-08-03] MEDS: METOPROLOL TART IMMED RELEASE 50 MG TABLET. PO SCH (20:36)
[2016-08-03] MEDS: FLECAINIDE ACETATE 50 MG TABLET. PO SCH (20:37)
[2016-08-03] MEDS: APIXABAN 5 MG TABLET. PO SCH (20:37)
[2016-08-03] MEDS: BRIMONIDINE 0.2% OPHTH SOLUTION 5ML BOTTLE. OU SCH (20:51)
[2016-08-03] MEDS ORDERED: TIMOLOL 0.5% OPHTH SOLUTION 5ML BOTTLE. OU SCH (21:00)
[2016-08-03] MEDS ORDERED: CRANBERRY EXTRACT 500 MG PO SCH (21:00)
[2016-08-03] MEDS ORDERED: ATORVASTATIN CALCIUM 20 MG TABLET PO SCH (21:00)
[2016-08-03] MEDS ORDERED: D3 PO SCH (21:00)
[2016-08-03] MEDS ORDERED: BOSWELLIA SERRA PO SCH (21:00)
[2016-08-03] MEDS ORDERED: GLUCOSAMINE PO SCH (21:00)
[2016-08-03] MEDS ORDERED: PRAVASTATIN SODIUM PO SCH (21:00)
[2016-08-03 22:39] VITALS: BP 118/50
--- NOTE | 2016-08-04 00:04 | CONS ---
DATE OF CONSULTATION: PRIMARY PHYSICIAN: Dr. Duron. REASON FOR CONSULTATION: Hyponatremia and elevated creatinine. HISTORY OF PRESENT ILLNESS: The patient is a pleasant 81-year-old female who has had frequent UTIs. She was treated by a nurse practitioner at ____ office. She was recently seen by Infectious Disease and was told not to use vaginal creams, etc. She did have a small break in her UTI frequency; however, it has come back again to where she has another UTI currently and is in the process of being treated by her primary provider for the same. Prior to that, she has seen Urology twice. She has had cystoscopies in the past, which had shown signs of significant infection. She does not know any other findings at that time. Over the last 3 weeks, she has had an elevated creatinine when her creatinine was checked by her Cardiology nurse practitioner. She is not sure why she takes amiloride. She is known to have atrial fibrillation and is on chronic anticoagulation. Over the last few days, she has been feeling weak, has been taking ibuprofen since the weekend. This helps with her fevers. She had some nausea. No chills. Has had some poor p.o. intake of late and admits to not drinking enough water at this time. She denies Medrol Dosepak. She denies knowledge of using Bactrim as an antibiotic in the recent past either. PAST MEDICAL HISTORY: Positive for hypertension, AFib, dyslipidemia. SOCIAL HISTORY: , lives with her , nonsmoker, nondrinker currently. No alcohol or drug use per se. FAMILY HISTORY: Unknown. For rest of details, see electronic records. DAVIE STUART MD DR: DIANA/marie JOB#: [id number] / [id number]
[2016-08-04] MEDS: IV NORMAL SALINE 1000ML BAG 1,000 ML IV SCH ×2 (00:45→08:23)
[2016-08-04 03:05] VITALS: BP 135/56
[2016-08-04 07:00] VITALS: BP 132/68
[2016-08-04] MEDS ORDERED: PANTOPRAZOLE 40 MG TABLET.DR. PO SCH (07:30)
[2016-08-04 07:48] LABS: ALBUMIN 2.6 g/dL (3.4-5.0); CREATININE 1.3 mg/dL (0.6-1.0); GFR 39.2; PHOSPHORUS 2.7 mg/dL (2.6-4.7); POTASSIUM 3.7 mmol/L (3.5-5.1)
[2016-08-04 07:59] LABS: BASO % 0 % (0-3); EOS % 5 % (0-3); HEMATOCRIT 28.2 % (36.0-47.0); HEMOGLOBIN 9.2 g/dL (12.0-15.5); LYMPH # 0.7 x10^3/uL (1.0-4.8); LYMPH % 9 % (24-48); MEAN CORPUSCULAR HEMOGLOBIN 30 pg (25-35); MEAN CORPUSCULAR HGB CONC 33 g/dL (31-37); MEAN CORPUSCULAR VOLUME 91 fL (79-100); MONO % 12 % (0-9); NEUT % 75 % (31-73); PLATELET COUNT 248 x10^3/uL (140-400); RED BLOOD COUNT 3.11 x10^6/uL (3.50-5.40); RED CELL DISTRIBUTION WIDTH 14.5 % (11.5-14.5); WHITE BLOOD COUNT 8.1 x10^3/uL (4.0-11.0)
[2016-08-04] MEDS: FLECAINIDE ACETATE 50 MG TABLET. PO SCH (08:24)
[2016-08-04] MEDS: APIXABAN 5 MG TABLET. PO SCH (08:25)
[2016-08-04] MEDS: METOPROLOL TART IMMED RELEASE 50 MG TABLET. PO SCH (08:25)
[2016-08-04] MEDS: BRIMONIDINE 0.2% OPHTH SOLUTION 5ML BOTTLE. OU SCH (08:26)
[2016-08-04] MEDS ORDERED: CHOLECALCIFEROL (VITAMIN D3) 1,000 UNIT TABLET PO SCH (09:00)
[2016-08-04] MEDS ORDERED: LOSARTAN POTASSIUM 25 MG TABLET. PO SCH (09:00)
[2016-08-04] MEDS ORDERED: MAGNESIUM OXIDE 400 MG TABLET PO SCH (09:00)
[2016-08-04] MEDS ORDERED: AMILORIDE HCL 5 MG PO SCH (09:00)
[2016-08-04] MEDS ORDERED: BRIMONIDINE 0.2% OPHTH SOLUTION 5ML BOTTLE. OU SCH (09:00)
[2016-08-04 11:00] VITALS: BP 122/55
--- NOTE | 2016-08-04 11:19 | PDOC ---
SUBJECTIVE ROS AMY/ CKD III Feeling much better CVS: no Orthopnea, no CP RESP: no SOB, no ROSARIO GI: no Nausea, no Vomiting : n+ve Dysuria, no Urgency OBJECTIVE Vital Signs Vital Signs Date Time Temp Pulse Resp B/P (MAP) Pulse Ox O2 Delivery O2 Flow Rate FiO2 08/04/16 11:00 97.8 63 16 122/55 (77) 96 Room Air 97.8 I & 0 Intake and Output 08/04/16 07:00 Intake Total 250 ml Output Total 1625 ml Balance -1375 ml Intake Oral 250 ml Output Urine Total 1625 ml # Voids 4 PHYSICAL EXAM Physical Exam General Appearance: Awake Alert Oriented x 3 In no Distress Eyes: VIsion Unchanged Conjunctiva Normal EN: No EN Drainage Mucous Memb. moist Neck: no JVD no JVP Supple no Thyromegaly CVS: S1 S2 ?soft Murmur No Gallop No Rub no Edema Resp: no Rales no Rhonchi no Acc. Muscle use GI: BAS +ve NO Bruit Non Tender Non Distended : no CVA tenderness; ?min Suprapubic Tenderness Assessment & Plan ARF/ ? AIN and Pyelo. some Vol depeltion also, Abx asso AIN etc cannot be ruled out (Eos ^ today) . Current FLuid and E-lyte status does not necessitate emergent need for Dialysis. Will re-evaluate for Dialysis in am SEv HypoNatremia - suspect due to Vol depeltion - responding to IV NS Protein Gap - will check PEPs - ? infection related HypoALb - lwo PreAlb as noted. Suspect Poor PO intake. Anemia: significant Iron def. IV Fe as ordered. ; hold Epogen for now. HTN: Current BP meds reviewed. See orders for changes. UTI - await C and S - defer to Dr Christen Stuart Discussed Plan of Care and prognosis etc. at length with family. COMMENT/RELEVANT DATA Meds Current Medications Medications (Trade) Dose Ordered Sig/Juan Start Time Stop Time Status Last Admin Dose Admin Acetaminophen (Tylenol) 325 mg PRN Q6HRS PRN 08/02/16 20:00 08/03/16 20:41 325 MG Acetaminophen/ Hydrocodone Bitart (Lortab 5/325) 1 tab PRN Q6HRS PRN 08/02/16 20:00 Albuterol Sulfate (Ventolin Neb Soln) 2.5 mg PRN Q4HRS PRN 08/02/16 20:00 Apixaban (Eliquis) 2.5 mg BID 08/03/16 21:00 08/04/16 08:25 2.5 MG Atorvastatin Calcium (Lipitor) 20 mg QHS 08/03/16 21:00 08/03/16 20:37 20 MG Brimonidine Tartrate (Alphagan) 1 drop TID 08/03/16 21:00 08/04/16 08:26 1 DROP Ceftriaxone Sodium 1 gm/ Sodium Chloride 50 ml @ 100 mls/hr Q24H 08/03/16 21:00 08/03/16 20:40 100 MLS/HR Flecainide Acetate (Tambocor) 150 mg Q12HR 08/03/16 21:00 08/04/16 08:24 150 MG Hydralazine HCl (Apresoline) 10 mg PRN Q4HRS PRN 08/02/16 20:00 Levofloxacin/ Dextrose 50 ml @ 50 mls/hr Q24H 08/02/16 21:00 08/03/16 19:06 DC 08/02/16 22:24 50 MLS/HR Levofloxacin/ Dextrose (Levaquin Per Pharmacy) 1 each PRN DAILY PRN 08/02/16 20:00 08/03/16 19:06 DC Losartan Potassium (Cozaar) 25 mg DAILY 08/04/16 09:00 08/04/16 08:25 25 MG Magnesium Oxide (Magnesium Oxide) 400 mg DAILY 08/04/16 09:00 08/04/16 08:24 400 MG Magnesium Sulfate/ Dextrose 50 ml @ 25 mls/hr PRN DAILY PRN 08/03/16 12:30 Metoprolol Tartrate (Lopressor) 50 mg BID 08/03/16 21:00 08/04/16 08:25 50 MG Non-Formulary Medication 2 tab QHS 08/03/16 21:00 UNV Ondansetron HCl (Zofran) 4 mg PRN Q6HRS PRN 08/03/16 20:00 08/04/16 08:27 4 MG Pantoprazole Sodium (Protonix) 40 mg DAILYAC 08/04/16 07:30 08/04/16 08:24 40 MG Sodium Polystyrene Sulfonate (Kayexalate) 15 gm 1X ONCE 08/02/16 20:00 08/02/16 20:02 DC 08/02/16 22:22 15 GM Sodium Chloride 1,000 ml @ 125 mls/hr Q8H 08/02/16 19:15 08/04/16 08:23 125 MLS/HR Timolol Maleate (Timoptic 0.5% Ophth) 1 drop BID 08/03/16 21:00 08/03/16 21:00 DC Vitamin D (Vitamin D3) 2,000 unit DAILY 08/04/16 09:00 08/04/16 08:25 2,000 UNIT Lab Laboratory Tests Test 08/03/16 13:35 08/03/16 14:35 08/03/16 15:50 08/03/16 20:00 Serum Osmolality 264 mOsm/Kg (279-304) Prealbumin 10 mg/dL (9-32) Urine Collection Type Unknown Urine Color Yellow Urine Clarity Turbid Urine pH 6.5 Urine Specific [place] <=1.005 Urine Protein Negative mg/dL (NEG-TRACE) Urine Glucose (UA) Negative mg/dL (NEG) Urine Ketones (Stick) Negative mg/dL (NEG) Urine Blood Moderate (NEG) Urine Nitrite Negative (NEG) Urine Bilirubin Negative (NEG) Urine Urobilinogen Dipstick 0.2 mg/dL (0.2 mg/dL) Urine Leukocyte Esterase Large (NEG) Urine RBC 6-10 /HPF (0-2) Urine WBC Tntc /HPF (0-4) Urine Squamous Epithelial Cells Mod /LPF Urine Bacteria Moderate /HPF (0-FEW) Urine Mucus Mod /LPF Urine Random Sodium 22 mmol/L (Not Estab.) Sodium Level 128 mmol/L (136-145) 129 mmol/L (136-145) Test 08/04/16 06:30 White Blood Count 8.1 x10^3/uL (4.0-11.0) Red Blood Count 3.11 x10^6/uL (3.50-5.40) Hemoglobin 9.2 g/dL (12.0-15.5) Hematocrit 28.2 % (36.0-47.0) Mean Corpuscular Volume 91 fL (79-100) Mean Corpuscular Hemoglobin 30 pg (25-35) Mean Corpuscular Hemoglobin Concent 33 g/dL (31-37) Red Cell Distribution Width 14.5 % (11.5-14.5) Platelet Count 248 x10^3/uL (140-400) Neutrophils (%) (Auto) 75 % (31-73) Lymphocytes (%) (Auto) 9 % (24-48) Monocytes (%) (Auto) 12 % (0-9) Eosinophils (%) (Auto) 5 % (0-3) Basophils (%) (Auto) 0 % (0-3) Neutrophils # (Auto) 6.0 x10^3uL (1.8-7.7) Lymphocytes # (Auto) 0.7 x10^3/uL (1.0-4.8) Monocytes # (Auto) 1.0 x10^3/uL (0.0-1.1) Eosinophils # (Auto) 0.4 x10^3/uL (0.0-0.7) Basophils # (Auto) 0.0 x10^3/uL (0.0-0.2) Sodium Level 133 mmol/L (136-145) Potassium Level 3.7 mmol/L (3.5-5.1) Chloride Level 100 mmol/L (98-107) Carbon Dioxide Level 22 mmol/L (21-32) Anion Gap 11 (6-14) Blood Urea Nitrogen 20 mg/dL (7-20) Creatinine 1.3 mg/dL (0.6-1.0) Estimated GFR (Cockcroft-Gault) 39.2 Glucose Level 92 mg/dL (70-99) Calcium Level 8.0 mg/dL (8.5-10.1) Phosphorus Level 2.7 mg/dL (2.6-4.7) Magnesium Level 1.9 mg/dL (1.8-2.4) Albumin 2.6 g/dL (3.4-5.0) Other Renal ultrasound, 08/03/2016: History: Acute on chronic renal failure The right kidney measures 10.0 cm in length while the left kidney measures 10.8 cm. There is mild bilateral renal cortical scarring. No renal mass is seen. There is no evidence of hydronephrosis. Limited views of the partially filled urinary bladder show no abnormality. IMPRESSION: 1. Mild renal cortical scarring. 2. No evidence of renal obstruction. DAVIE STUART MD August 04, 2016 11:19
[2016-08-04 12:22] LABS: URINE OSMOLALITY 147 mOsmol/kg (.)
[2016-08-04] MEDS ORDERED: CIPR500T94 PO (12:47)
--- NOTE | 2016-08-04 12:50 | PDOC3 ---
Discharge Summary Visit Information Date of Admission: August 02, 2016 Date of Discharge: August 04, 2016 Admitting Diagnosis Comment: 1. Recurrent urinary tract infections. 2. Acute kidney injury, crea 1.3 on dc 3. Physical debility and fall risk. 4. Dehydration. resolved 5. Hyperkalemia. resolved 6. Severe Hyponatremia resolved Final Diagnosis Problems Medical Problems: (1) Dehydration Status: Acute (2) Hyperkalemia Status: Acute (3) Hyponatremia Status: Acute Brief Hospital Course Allergies Allergies Coded Allergies Type Severity Reaction Last Updated Verified No Known Drug Allergies 08/02/16 No Vital Signs Vital Signs Date Time Temp Pulse Resp B/P (MAP) Pulse Ox O2 Delivery O2 Flow Rate FiO2 08/04/16 11:00 97.8 63 16 122/55 (77) 96 Room Air 97.8 Lab Results Laboratory Tests Test 08/02/16 19:25 08/02/16 20:00 08/02/16 20:50 08/03/16 07:00 White Blood Count 12.3 x10^3/uL (4.0-11.0) 10.6 x10^3/uL (4.0-11.0) Red Blood Count 3.29 x10^6/uL (3.50-5.40) 3.09 x10^6/uL (3.50-5.40) Hemoglobin 9.9 g/dL (12.0-15.5) 9.4 g/dL (12.0-15.5) Hematocrit 29.1 % (36.0-47.0) 27.6 % (36.0-47.0) Mean Corpuscular Volume 88 fL (79-100) 89 fL (79-100) Mean Corpuscular Hemoglobin 30 pg (25-35) 30 pg (25-35) Mean Corpuscular Hemoglobin Concent 34 g/dL (31-37) 34 g/dL (31-37) Red Cell Distribution Width 14.7 % (11.5-14.5) 14.3 % (11.5-14.5) Platelet Count 254 x10^3/uL (140-400) 235 x10^3/uL (140-400) Neutrophils (%) (Auto) 79 % (31-73) 78 % (31-73) Lymphocytes (%) (Auto) 7 % (24-48) 7 % (24-48) Monocytes (%) (Auto) 12 % (0-9) 13 % (0-9) Eosinophils (%) (Auto) 2 % (0-3) 1 % (0-3) Basophils (%) (Auto) 0 % (0-3) 0 % (0-3) Neutrophils # (Auto) 9.7 x10^3uL (1.8-7.7) 8.3 x10^3uL (1.8-7.7) Lymphocytes # (Auto) 0.9 x10^3/uL (1.0-4.8) 0.8 x10^3/uL (1.0-4.8) Monocytes # (Auto) 1.4 x10^3/uL (0.0-1.1) 1.4 x10^3/uL (0.0-1.1) Eosinophils # (Auto) 0.2 x10^3/uL (0.0-0.7) 0.1 x10^3/uL (0.0-0.7) Basophils # (Auto) 0.0 x10^3/uL (0.0-0.2) 0.0 x10^3/uL (0.0-0.2) Sodium Level 119 mmol/L (136-145) 119 mmol/L (136-145) 123 mmol/L (136-145) Potassium Level 4.2 mmol/L (3.5-5.1) 4.2 mmol/L (3.5-5.1) 3.9 mmol/L (3.5-5.1) Chloride Level 89 mmol/L (98-107) 90 mmol/L (98-107) 93 mmol/L (98-107) Carbon Dioxide Level 22 mmol/L (21-32) 22 mmol/L (21-32) 21 mmol/L (21-32) Anion Gap 8 (6-14) 7 (6-14) 9 (6-14) Blood Urea Nitrogen 28 mg/dL (7-20) 27 mg/dL (7-20) 25 mg/dL (7-20) Creatinine 1.9 mg/dL (0.6-1.0) 2.0 mg/dL (0.6-1.0) 1.8 mg/dL (0.6-1.0) Estimated GFR (Cockcroft-Gault) 25.3 23.9 26.9 BUN/Creatinine Ratio 15 (6-20) Glucose Level 126 mg/dL (70-99) 131 mg/dL (70-99) 93 mg/dL (70-99) Calcium Level 8.8 mg/dL (8.5-10.1) 8.6 mg/dL (8.5-10.1) 7.9 mg/dL (8.5-10.1) Total Bilirubin 0.5 mg/dL (0.2-1.0) Aspartate Amino Transf (AST/SGOT) 18 U/L (15-37) Alanine Aminotransferase (ALT/SGPT) 17 U/L (14-59) Alkaline Phosphatase 66 U/L (46-116) Total Protein 7.2 g/dL (6.4-8.2) Albumin 2.9 g/dL (3.4-5.0) Albumin/Globulin Ratio 0.7 (1.0-1.7) Urine Collection Type Unknown Urine Color Yellow Urine Clarity Turbid Urine pH 6.5 Urine Specific [place] <=1.005 Urine Protein 30 mg/dL (NEG-TRACE) Urine Glucose (UA) Negative mg/dL (NEG) Urine Ketones (Stick) Negative mg/dL (NEG) Urine Blood Moderate (NEG) Urine Nitrite Negative (NEG) Urine Bilirubin Negative (NEG) Urine Urobilinogen Dipstick 0.2 mg/dL (0.2 mg/dL) Urine Leukocyte Esterase Large (NEG) Urine RBC 1-2 /HPF (0-2) Urine WBC Tntc /HPF (0-4) Urine Squamous Epithelial Cells Mod /LPF Urine Bacteria Many /HPF (0-FEW) Urine Mucus Mod /LPF Uric Acid 3.6 mg/dL (2.6-6.0) Iron Level 15 ug/dL (50-170) Total Iron Binding Capacity 310 ug/dL (250-450) Iron Saturation 5 % (15-34) Ferritin 96 ng/mL (8-252) Creatine Kinase 52 U/L (26-192) Thyroid Stimulating Hormone (TSH) 1.574 uIU/mL (0.358-3.74) Test 08/03/16 13:35 08/03/16 14:35 08/03/16 15:50 08/03/16 20:00 Serum Osmolality 264 mOsm/Kg (279-304) Prealbumin 10 mg/dL (9-32) Urine Collection Type Unknown Urine Color Yellow Urine Clarity Turbid Urine pH 6.5 Urine Specific [place] <=1.005 Urine Protein Negative mg/dL (NEG-TRACE) Urine Glucose (UA) Negative mg/dL (NEG) Urine Ketones (Stick) Negative mg/dL (NEG) Urine Blood Moderate (NEG) Urine Nitrite Negative (NEG) Urine Bilirubin Negative (NEG) Urine Urobilinogen Dipstick 0.2 mg/dL (0.2 mg/dL) Urine Leukocyte Esterase Large (NEG) Urine RBC 6-10 /HPF (0-2) Urine WBC Tntc /HPF (0-4) Urine Squamous Epithelial Cells Mod /LPF Urine Bacteria Moderate /HPF (0-FEW) Urine Mucus Mod /LPF Urine Osmolality 147 mOsmol/kg (.) Urine Random Sodium 22 mmol/L (Not Estab.) Sodium Level 128 mmol/L (136-145) 129 mmol/L (136-145) Test 08/04/16 06:30 White Blood Count 8.1 x10^3/uL (4.0-11.0) Red Blood Count 3.11 x10^6/uL (3.50-5.40) Hemoglobin 9.2 g/dL (12.0-15.5) Hematocrit 28.2 % (36.0-47.0) Mean Corpuscular Volume 91 fL (79-100) Mean Corpuscular Hemoglobin 30 pg (25-35) Mean Corpuscular Hemoglobin Concent 33 g/dL (31-37) Red Cell Distribution Width 14.5 % (11.5-14.5) Platelet Count 248 x10^3/uL (140-400) Neutrophils (%) (Auto) 75 % (31-73) Lymphocytes (%) (Auto) 9 % (24-48) Monocytes (%) (Auto) 12 % (0-9) Eosinophils (%) (Auto) 5 % (0-3) Basophils (%) (Auto) 0 % (0-3) Neutrophils # (Auto) 6.0 x10^3uL (1.8-7.7) Lymphocytes # (Auto) 0.7 x10^3/uL (1.0-4.8) Monocytes # (Auto) 1.0 x10^3/uL (0.0-1.1) Eosinophils # (Auto) 0.4 x10^3/uL (0.0-0.7) Basophils # (Auto) 0.0 x10^3/uL (0.0-0.2) Sodium Level 133 mmol/L (136-145) Potassium Level 3.7 mmol/L (3.5-5.1) Chloride Level 100 mmol/L (98-107) Carbon Dioxide Level 22 mmol/L (21-32) Anion Gap 11 (6-14) Blood Urea Nitrogen 20 mg/dL (7-20) Creatinine 1.3 mg/dL (0.6-1.0) Estimated GFR (Cockcroft-Gault) 39.2 Glucose Level 92 mg/dL (70-99) Calcium Level 8.0 mg/dL (8.5-10.1) Phosphorus Level 2.7 mg/dL (2.6-4.7) Magnesium Level 1.9 mg/dL (1.8-2.4) Albumin 2.6 g/dL (3.4-5.0) Laboratory Tests Test 08/03/16 13:35 08/03/16 14:35 08/03/16 15:50 08/03/16 20:00 Serum Osmolality 264 mOsm/Kg (279-304) Prealbumin 10 mg/dL (9-32) Urine Collection Type Unknown Urine Color Yellow Urine Clarity Turbid Urine pH 6.5 Urine Specific [place] <=1.005 Urine Protein Negative mg/dL (NEG-TRACE) Urine Glucose (UA) Negative mg/dL (NEG) Urine Ketones (Stick) Negative mg/dL (NEG) Urine Blood Moderate (NEG) Urine Nitrite Negative (NEG) Urine Bilirubin Negative (NEG) Urine Urobilinogen Dipstick 0.2 mg/dL (0.2 mg/dL) Urine Leukocyte Esterase Large (NEG) Urine RBC 6-10 /HPF (0-2) Urine WBC Tntc /HPF (0-4) Urine Squamous Epithelial Cells Mod /LPF Urine Bacteria Moderate /HPF (0-FEW) Urine Mucus Mod /LPF Urine Osmolality 147 mOsmol/kg (.) Urine Random Sodium 22 mmol/L (Not Estab.) Sodium Level 128 mmol/L (136-145) 129 mmol/L (136-145) Test 08/04/16 06:30 White Blood Count 8.1 x10^3/uL (4.0-11.0) Red Blood Count 3.11 x10^6/uL (3.50-5.40) Hemoglobin 9.2 g/dL (12.0-15.5) Hematocrit 28.2 % (36.0-47.0) Mean Corpuscular Volume 91 fL (79-100) Mean Corpuscular Hemoglobin 30 pg (25-35) Mean Corpuscular Hemoglobin Concent 33 g/dL (31-37) Red Cell Distribution Width 14.5 % (11.5-14.5) Platelet Count 248 x10^3/uL (140-400) Neutrophils (%) (Auto) 75 % (31-73) Lymphocytes (%) (Auto) 9 % (24-48) Monocytes (%) (Auto) 12 % (0-9) Eosinophils (%) (Auto) 5 % (0-3) Basophils (%) (Auto) 0 % (0-3) Neutrophils # (Auto) 6.0 x10^3uL (1.8-7.7) Lymphocytes # (Auto) 0.7 x10^3/uL (1.0-4.8) Monocytes # (Auto) 1.0 x10^3/uL (0.0-1.1) Eosinophils # (Auto) 0.4 x10^3/uL (0.0-0.7) Basophils # (Auto) 0.0 x10^3/uL (0.0-0.2) Sodium Level 133 mmol/L (136-145) Potassium Level 3.7 mmol/L (3.5-5.1) Chloride Level 100 mmol/L (98-107) Carbon Dioxide Level 22 mmol/L (21-32) Anion Gap 11 (6-14) Blood Urea Nitrogen 20 mg/dL (7-20) Creatinine 1.3 mg/dL (0.6-1.0) Estimated GFR (Cockcroft-Gault) 39.2 Glucose Level 92 mg/dL (70-99) Calcium Level 8.0 mg/dL (8.5-10.1) Phosphorus Level 2.7 mg/dL (2.6-4.7) Magnesium Level 1.9 mg/dL (1.8-2.4) Albumin 2.6 g/dL (3.4-5.0) Brief Hospital Course Ms. Reyes is a 81 old female admitted for left sided flank pain , hx recurrent uti on cranberry juice at home, Another UTI this admit, E coli seaman sensitive, HAs seen urologist as OP in past, Will give urology info to her ff up as OP> NOn septic, rx for cipro 2 week course given, \ US renals - ok Crea on dc 1.3 DispO; home Proc; None consults: renal Pt seen and exmained Dw rneal and lab - took >40 mins to talk over phone and get I and D of urine cx Discharge Information Condition at Discharge: Improved, Stable Disposition/Orders: D/C to Home Scheduled Amiloride Hcl (Amiloride Hcl), 5 MG PO DAILY, (Reported) Apixaban (Eliquis), 5 MG PO BID, (Reported) Brimonidine Tartrate/Timolol (Combigan Eye Drops), 0.15 ML EACHEYE BID, ( Reported) Cholecalciferol (Vitamin D3) (D3-2000), 2,000 UNIT PO DAILY, (Reported) Cranberry Extract (Cranberry Concentrate), 500 MG PO TID, (Reported) Flecainide Acetate (Flecainide Acetate), 150 MG PO BID, (Reported) Glucosamine/D3/Boswellia Cher (Osteo Bi-Flex Caplet), 200-250 MG PO BID, ( Reported) Losartan Potassium (Losartan Potassium), 25 MG PO DAILY, (Reported) Magnesium Oxide (Magnesium Oxide), 1 TAB PO DAILY, (Reported) Nebivolol Hcl (Bystolic), 10 MG PO BID, (Reported) Omeprazole (Omeprazole), 2 CAP PO DAILY, (Reported) Pravastatin Sodium (Pravastatin Sodium), 2 TAB PO QHS, (Reported) Miscellaneous Medications Brimonidine Tartrate (Brimonidine Tartrate), 5 ML OP, (Reported) YOEL RAIN MD August 04, 2016 12:49
[2016-08-04 15:29] LABS: KAPPA LAMBDA RATIO 1.16 (0.26-1.65)
[2016-08-05] MEDS ORDERED: IRON SUCROSE COMPLEX 200 MG in IV NORMAL SALINE 100ML 100 ML IV SCH (09:00)
[2016-08-08 10:16] LABS: ALPHA 1 0.5 g/dL (0.0-0.4); ALPHA 2 1.1 g/dL (0.4-1.0); GAMMA 1.2 g/dL (0.4-1.8); M-SPIKE Not Observed g/dL (Not Observed); PROTEIN TOTAL 6.6 g/dL (6.0-8.5)
[2016-08-08 17:16] LABS: IMMUNOGLOBULIN A 217 mg/dL (64-422); IMMUNOGLOBULIN G 1082 mg/dL (700-1600); IMMUNOGLOBULIN M 41 mg/dL (26-217)
== END 2016-08-04 14:17 | disposition home or self-care (01) | DRG 689 ==
LOC: 5 SOUTH 16:45
PROVIDERS: ADMIT Internal Medicine; ATTEND Internal Medicine
DX: N39.0 Urinary tract infection, site not specified (principal); N17.0 Acute kidney failure with tubular necrosis; E87.1 Hypo-osmolality and hyponatremia; E87.5 Hyperkalemia; E78.5 Hyperlipidemia, unspecified; E86.0 Dehydration; I12.9 Hypertensive chronic kidney disease with stage 1 through stage 4 chronic kidney disease, or unspecified chronic kidney disease; I48.91 Unspecified atrial fibrillation; B96.20 Unspecified Escherichia coli [E. coli] as the cause of diseases classified elsewhere; N18.3 Chronic kidney disease, stage 3 (moderate); Z79.01 Long term (current) use of anticoagulants; Z91.81 History of falling
CPT/HCPCS: 36415; 76770; 80048; 80053; 80069; 81001; 82550; 82728; 83520; 83540; 83550; 83735; 83930; 83935; 84134; 84165; 84166; 84295; 84300; 84443; 84550; 85027; 86334; 87086; 87186; 94640; J0696; J1956; J2405; J7030; 97110; 97116; 97535

== ENCOUNTER 2017-06-19 20:05 | Inpatient (IN) | payer OTHER ==
[2017-06-19] MEDS ORDERED: CLOTRIMAZOLE/BETAMETH 1%-0.05% TOPICAL CREAM 15GM TUBE. TP (20:15)
[2017-06-19] MEDS: IV NORMAL SALINE 1000ML BAG 1,000 ML IV (20:30)
[2017-06-19] MEDS: ONDANSETRON PF 4 MG/2 ML VIAL. IV (20:59)
[2017-06-19] MEDS: MORPHINE SULFATE 4 MG/ML DISP.SYRIN. IV ×2 (21:00→22:59)
[2017-06-19] MEDS ORDERED: LABETALOL 20 MG/4 ML DISP.SYRIN. IVP (21:00)
[2017-06-19] MEDS ORDERED: BRIMONIDINE TARTRATE OU (21:30)
[2017-06-19] MEDS ORDERED: TIMOLOL OU (21:30)
[2017-06-19] MEDS: ATORVASTATIN CALCIUM 10 MG TABLET. PO (21:38)
[2017-06-19] MEDS: FLECAINIDE ACETATE 50 MG TABLET. PO (21:41)
[2017-06-19] MEDS: hydrALAZINE 20 MG/ML VIAL. IVP (21:42)
[2017-06-20] MEDS: ONDANSETRON PF 4 MG/2 ML VIAL. IV ×3 (00:19→18:20)
[2017-06-20 05:19] LABS: BASO % 0 % (0-3); EOS % 0 % (0-3); HEMATOCRIT 31.9 % (36.0-47.0); HEMOGLOBIN 10.9 g/dL (12.0-15.5); LYMPH # 0.4 x10^3/uL (1.0-4.8); LYMPH % 4 % (24-48); MEAN CORPUSCULAR HEMOGLOBIN 34 pg (25-35); MEAN CORPUSCULAR HGB CONC 34 g/dL (31-37); MEAN CORPUSCULAR VOLUME 98 fL (79-100); MONO # 0.5 x10^3/uL (0.0-1.1); MONO % 5 % (0-9); NEUT % 90 % (31-73); PLATELET COUNT 212 x10^3/uL (140-400); RED BLOOD COUNT 3.24 x10^6/uL (3.50-5.40); RED CELL DISTRIBUTION WIDTH 13.2 % (11.5-14.5); WHITE BLOOD COUNT 8.9 x10^3/uL (4.0-11.0)
[2017-06-20 05:40] LABS: ADD MAN DIFF? YES
[2017-06-20 05:46] LABS: ALBUMIN 3.2 g/dL (3.4-5.0); ALBUMIN/GLOBULIN RATIO 0.8 (1.0-1.7); ALK PHOS 69 U/L (46-116); ALT (SGPT) 18 U/L (14-59); ANION GAP 9 (6-14); AST (SGOT) 20 U/L (15-37); BLOOD UREA NITROGEN 18 mg/dL (7-20); BUN/CREATININE RATIO 15 (6-20); CALCIUM 9.1 mg/dL (8.5-10.1); CARBON DIOXIDE 23 mmol/L (21-32); CHLORIDE 98 mmol/L (98-107); CREATININE 1.2 mg/dL (0.6-1.0); GFR 42.9; GLUCOSE 132 mg/dL (70-99); POTASSIUM 4.1 mmol/L (3.5-5.1); SODIUM 130 mmol/L (136-145); TOTAL BILIRUBIN 0.4 mg/dL (0.2-1.0)
[2017-06-20 05:54] LABS: INR 1.2 (0.8-1.1); PROTHROMBIN TIME PATIENT 14.2 SEC (11.7-14.0)
[2017-06-20 07:22] LABS: % LYMPHS 8 % (24-48); % MONOS 6 % (0-10); % SEGS 86 % (35-66)
[2017-06-20 07:23] LABS: PLT ESTIMATE ADEQUATE (ADEQUATE)
[2017-06-20] MEDS: FLECAINIDE ACETATE 50 MG TABLET. PO ×2 (08:05→21:12)
[2017-06-20] MEDS: BRIMONIDINE 0.2% OPHTH SOLUTION 5ML BOTTLE. OU ×2 (09:08→21:11)
[2017-06-20] MEDS: TIMOLOL 0.5% OPHTH SOLUTION 5ML BOTTLE. OU ×4 (09:08→21:11)
[2017-06-20] MEDS: METOPROLOL SUCC 24HR ER 25 MG TAB.ER.24H. PO (09:09)
[2017-06-20] MEDS: PANTOPRAZOLE 40 MG TABLET.DR. PO (09:10)
[2017-06-20] MEDS: LOSARTAN POTASSIUM 50 MG TABLET. PO (09:10)
[2017-06-20] MEDS: IV NORMAL SALINE 1000ML BAG 1,000 ML IV ×2 (09:18→16:33)
[2017-06-20] MEDS ORDERED: LIDOCAINE 1% PF 5 ML VIAL. (11:37)
[2017-06-20] MEDS ORDERED: PROPOFOL 20 ML IV (11:37)
[2017-06-20] MEDS ORDERED: ROCURONIUM 50 MG/5 ML VIAL. (12:55)
[2017-06-20] MEDS ORDERED: FAMOTIDINE 20 MG/2 ML VIAL (12:55)
[2017-06-20] MEDS ORDERED: ONDANSETRON PF 4 MG/2 ML VIAL. (12:55)
[2017-06-20] MEDS ORDERED: fentaNYL PF VIAL 100 MCG/2 ML VIAL ×2 (12:55→14:34)
[2017-06-20] MEDS ORDERED: DEXAMETHASONE SOD PHOS 20 MG/5 ML VIAL. (12:56)
[2017-06-20] MEDS ORDERED: GLYCOPYRROLATE 1 MG/5 ML VIAL. (14:44)
[2017-06-20] MEDS ORDERED: DESFLURANE 61 TO 120 MINUTES IH (14:49)
[2017-06-20] MEDS: IV RINGERS,LACTATED 1000ML 1,000 ML IV (15:21)
[2017-06-20] MEDS ORDERED: LIDOCAINE 1% PF 2 ML VIAL. ID (15:30)
[2017-06-20] MEDS ORDERED: PROCHLORPERAZINE 10 MG/2 ML VIAL. IV (15:30)
[2017-06-20] MEDS ORDERED: fentaNYL PF VIAL 100 MCG/2 ML VIAL IV ×2 (15:30)
[2017-06-20] MEDS: MORPHINE SULFATE 4 MG/ML DISP.SYRIN. IV ×2 (15:51→18:16)
[2017-06-20] MEDS ORDERED: PROMETHAZINE 12.5 MG in IV DEXTROSE 5% 50 ML IV (20:30)
[2017-06-20] MEDS: ATORVASTATIN CALCIUM 10 MG TABLET. PO (21:11)
[2017-06-20] MEDS: PROMETHAZINE 12.5 MG in IV DEXTROSE 5% 50 ML IV (21:23)
[2017-06-20 21:24] LABS: MRSA BY PCR Negative (Negative)
[2017-06-20] MEDS: CIPROFLOXACIN 400MG PREMIX 200 ML IV (22:19)
[2017-06-21] MEDS: IV NORMAL SALINE 1000ML BAG 1,000 ML IV (08:00)
[2017-06-21] MEDS: LOSARTAN POTASSIUM 50 MG TABLET. PO (10:03)
[2017-06-21] MEDS: FLECAINIDE ACETATE 50 MG TABLET. PO ×2 (10:03→20:13)
[2017-06-21] MEDS: METOPROLOL SUCC 24HR ER 25 MG TAB.ER.24H. PO (10:03)
[2017-06-21] MEDS: TIMOLOL 0.5% OPHTH SOLUTION 5ML BOTTLE. OU ×2 (10:04→20:13)
[2017-06-21] MEDS: BRIMONIDINE 0.2% OPHTH SOLUTION 5ML BOTTLE. OU ×2 (10:04→20:13)
[2017-06-21] MEDS: PANTOPRAZOLE 40 MG TABLET.DR. PO (10:04)
[2017-06-21] MEDS: CIPROFLOXACIN 400MG PREMIX 200 ML IV (10:23)
[2017-06-21] MEDS: ATORVASTATIN CALCIUM 10 MG TABLET. PO (20:10)
[2017-06-21] MEDS: oxyCODONE/APAP 5/325 1 TAB TABLET PO (20:14)
[2017-06-22] MEDS: IV NORMAL SALINE 1000ML BAG 1,000 ML IV ×3 (01:35→14:55)
[2017-06-22] MEDS: PANTOPRAZOLE 40 MG TABLET.DR. PO (08:30)
[2017-06-22] MEDS: LOSARTAN POTASSIUM 50 MG TABLET. PO (08:32)
[2017-06-22] MEDS: FLECAINIDE ACETATE 50 MG TABLET. PO ×2 (08:32→21:11)
[2017-06-22] MEDS: TIMOLOL 0.5% OPHTH SOLUTION 5ML BOTTLE. OU ×2 (08:33→21:11)
[2017-06-22] MEDS: BRIMONIDINE 0.2% OPHTH SOLUTION 5ML BOTTLE. OU ×2 (08:33→21:11)
[2017-06-22] MEDS: METOPROLOL SUCC 24HR ER 25 MG TAB.ER.24H. PO (08:33)
[2017-06-22] MEDS: oxyCODONE/APAP 5/325 1 TAB TABLET PO ×2 (08:33→17:48)
[2017-06-22] MEDS: APIXABAN 5 MG TABLET. PO (17:48)
[2017-06-22] MEDS: NEOMY/BACITR/POLYMYXIN OINT PACKET. TP (17:49)
[2017-06-22] MEDS: ATORVASTATIN CALCIUM 10 MG TABLET. PO (21:06)
[2017-06-23] MEDS: oxyCODONE/APAP 5/325 1 TAB TABLET PO ×3 (00:49→10:44)
[2017-06-23] MEDS: PANTOPRAZOLE 40 MG TABLET.DR. PO (08:18)
[2017-06-23] MEDS: APIXABAN 5 MG TABLET. PO (08:18)
[2017-06-23] MEDS: METOPROLOL SUCC 24HR ER 25 MG TAB.ER.24H. PO (08:19)
[2017-06-23] MEDS: LOSARTAN POTASSIUM 50 MG TABLET. PO (08:19)
[2017-06-23] MEDS: FLECAINIDE ACETATE 50 MG TABLET. PO (08:20)
[2017-06-23] MEDS: BRIMONIDINE 0.2% OPHTH SOLUTION 5ML BOTTLE. OU (08:22)
[2017-06-23] MEDS: TIMOLOL 0.5% OPHTH SOLUTION 5ML BOTTLE. OU (08:22)
[2017-06-23] MEDS ORDERED: POLYETHYLENE GLYCOL 3350 17 GM PACKET. PO (11:45)
[2017-06-23] MEDS ORDERED: SENNOSIDES 8.6 MG TABLET PO (11:45)
[2017-06-23] MEDS: DOCUSATE SODIUM 100 MG CAPSULE. PO (11:47)
[2017-06-23] MEDS: POLYETHYLENE GLYCOL 3350 17 GM PACKET. PO (11:48)
[2017-06-23] MEDS: amLODIPine BESYLATE 2.5 MG TABLET PO (12:12)
[2017-06-23] MEDS: ANTI-COAG MONITOR BY PHARMACY. MC (14:03)
[2017-06-24] MEDS ORDERED: DOCUSATE SODIUM 100 MG CAPSULE. PO (09:00)
== END 2017-06-23 14:45 | DRG 511 ==
LOC: 4 NORTH 20:05
PROVIDERS: Internal Medicine
PROC: 0PSK04Z Reposition Right Ulna with Internal Fixation Device, Open Approach (ICD-10-PCS; principal; 2017-06-20 13:34)
DX: S52.021A Displaced fracture of olecranon process without intraarticular extension of right ulna, initial encounter for closed fracture (principal); I13.0 Hypertensive heart and chronic kidney disease with heart failure and stage 1 through stage 4 chronic kidney disease, or unspecified chronic kidney disease; I48.91 Unspecified atrial fibrillation; I50.9 Heart failure, unspecified; N39.0 Urinary tract infection, site not specified; W17.89XA Other fall from one level to another, initial encounter; S52.022A Displaced fracture of olecranon process without intraarticular extension of left ulna, initial encounter for closed fracture; S05.11XA Contusion of eyeball and orbital tissues, right eye, initial encounter; N18.3 Chronic kidney disease, stage 3 (moderate); Z96.649 Presence of unspecified artificial hip joint; M19.90 Unspecified osteoarthritis, unspecified site; Z82.49 Family history of ischemic heart disease and other diseases of the circulatory system; Z88.5 Allergy status to narcotic agent; Z88.2 Allergy status to sulfonamides; Z88.8 Allergy status to other drugs, medicaments and biological substances; Y93.89 Activity, other specified; Y92.89 Other specified places as the place of occurrence of the external cause; Y99.8 Other external cause status
CPT/HCPCS: 36415; 74176; 76000; 80053; 82306; 85007; 85025; 85610; 87641; 97110-GP; 97116-GP; 97162-GP; 97166-GO; 97535-GO; J0360; J0690; J0744; J1100; J2060; J2270; J2405; J2550; J2704; J3010; J3490; J7030; S0028

== ENCOUNTER 2019-01-29 08:45 | Inpatient (IN) | payer OTHER ==
[~2019-01-29] VITALS: Ht 162.6 cm; Wt 69.9 kg
[~2019-01-29 08:45] MED LIST: AMIL5TAB2 PO; APIX5TAB PO; BRIM5DRO2 EACHEYE; BRIM5DRO4 OP; BYSTOLIC10 MG PO; CEFD300C PO; CHOL200044 PO; CIPR500T94 PO; CLOT15CR5 TP; CRAN500C7 PO; ESTR0.62 PO; FLEC100T PO; FLEC150T PO; GLUC1TAB71 PO; LOSA-73 PO; LOSA25TA54 PO; MAGN400T5 PO; METO-239 PO; OMEP40CA45 PO; OXYC1TAB7 PO; PRAV40TA2 PO
[2019-01-29 11:05] VITALS: BP 97/45
[2019-01-29] MEDS ORDERED: CLOTRIMAZOLE/BETAMETH 1%-0.05% TOPICAL CREAM 15GM TUBE. TP PRN (12:15)
[2019-01-29] MEDS ORDERED: METOPROLOL SUCC 24HR ER 25 MG TAB.ER.24H. PO SCH (13:00)
[2019-01-29] MEDS ORDERED: LOSARTAN POTASSIUM 50 MG TABLET. PO SCH (13:00)
[2019-01-29] MEDS ORDERED: cefTRIAXone IV Push 1 GM VIAL. IVP SCH (13:00)
[2019-01-29] MEDS: oxyCODONE/APAP 5/325 1 TAB TABLET PO PRN ×2 (13:38→20:57)
[2019-01-29] MEDS: DICLOFENAC SODIUM 1% TOPICAL GEL 100GM TUBE. TP SCH ×2 (13:41→20:59)
[2019-01-29 15:00] VITALS: BP 115/51
--- NOTE | 2019-01-29 15:25 | NUR ---
The patient, LEIDY BHANDARI, 83 y/o, F DIRECTLY admitted by TOSHA CHANEY MD, was given written information regarding hospital policies, unit procedures and contact persons. Orders entered in EMR, consults called, Fall risk precautions in place. Verbalized understanding. Valuables were checked and logged. Bilat hearing aids in place. Report received from Joslyn at [facility].
--- NOTE | 2019-01-29 16:40 | NUR ---
Wound Care: Patient seen per wound care consult. Patient has wound of unknown origin to bilateral buttocks. Wound is not pressure or incontinence related. Patient states she is mobile and was told this is related to poor nutrition. Wounds are cleansed and assessed. Recommendations for A & D ointment to be applied BID. Patient is ambulatory with walker and able to self turn. A & D ointment applied. dressing change instructions left in room. No other wounds noted. Patient back to bed and call light in reach. Spoke with RN regarding POC. Will follow patient regarding wound care.
[2019-01-29] MEDS: CARVEDILOL 6.25 MG TABLET. PO SCH (17:41)
[2019-01-29 19:15] VITALS: BP 140/51
[2019-01-29] MEDS: LACTOBACILLUS RHAMNOSUS GG 1 CAPSULE. PO SCH (20:57)
[2019-01-29] MEDS: ASCORBIC ACID 500 MG TABLET PO SCH (20:58)
[2019-01-29] MEDS: AMIODARONE HCL 200 MG TABLET. PO SCH (20:58)
[2019-01-29] MEDS: ATORVASTATIN CALCIUM 10 MG TABLET. PO SCH (20:58)
[2019-01-29] MEDS ORDERED: FLECAINIDE ACETATE 50 MG TABLET. PO SCH (21:00)
[2019-01-29] MEDS ORDERED: ATORVASTATIN CALCIUM 20 MG TABLET PO SCH (21:00)
[2019-01-29] MEDS: BRIMONIDINE 0.2% OPHTH SOLUTION 5ML BOTTLE. OU SCH (21:00)
[2019-01-29 23:23] VITALS: BP 129/40
[2019-01-30] VITALS (21 sets, daily range): BP systolic 118–172; BP diastolic 39–81
[2019-01-30] MEDS: oxyCODONE/APAP 5/325 1 TAB TABLET PO PRN ×3 (02:03→21:32)
[2019-01-30 04:08] LABS: BASO % 1 % (0-3); EOS # 0.4 x10^3/uL (0.0-0.7); EOS % 7 % (0-3); HEMATOCRIT 23.4 % (36.0-47.0); HEMOGLOBIN 7.8 g/dL (12.0-15.5); LYMPH # 0.5 x10^3/uL (1.0-4.8); LYMPH % 8 % (24-48); MEAN CORPUSCULAR HEMOGLOBIN 33 pg (25-35); MEAN CORPUSCULAR HGB CONC 33 g/dL (31-37); MEAN CORPUSCULAR VOLUME 99 fL (79-100); MONO # 0.8 x10^3/uL (0.0-1.1); MONO % 12 % (0-9); NEUT # 4.7 x10^3/uL (1.8-7.7); NEUT % 73 % (31-73); PLATELET COUNT 212 x10^3/uL (140-400); RED BLOOD COUNT 2.37 x10^6/uL (3.50-5.40); RED CELL DISTRIBUTION WIDTH 15.7 % (11.5-14.5); WHITE BLOOD COUNT 6.4 x10^3/uL (4.0-11.0)
[2019-01-30 04:12] LABS: PROTHROMBIN TIME PATIENT 18.5 SEC (11.7-14.0)
[2019-01-30 04:29] LABS: ALBUMIN 2.4 g/dL (3.4-5.0); ALBUMIN/GLOBULIN RATIO 0.6 (1.0-1.7); CALCIUM 8.2 mg/dL (8.5-10.1); CREATININE 1.8 mg/dL (0.6-1.0); GFR 26.8; POTASSIUM 4.1 mmol/L (3.5-5.1); TOTAL BILIRUBIN 0.4 mg/dL (0.2-1.0); TOTAL PROTEIN 6.2 g/dL (6.4-8.2)
[2019-01-30] MEDS: PANTOPRAZOLE 40 MG TABLET.DR. PO SCH (08:00)
[2019-01-30] MEDS: CARVEDILOL 6.25 MG TABLET. PO SCH ×3 (08:00→16:30)
[2019-01-30] MEDS ORDERED: LIDOCAINE WITH 8.4% SOD BICARB 3 ML DISP.SYRIN. ONE (08:07)
[2019-01-30] MEDS ORDERED: MIDAZOLAM HCL/PF 2 MG/2 ML VIAL. ONE (08:28)
[2019-01-30] MEDS ORDERED: fentaNYL PF VIAL 100 MCG/2 ML VIAL ONE (08:29)
[2019-01-30] MEDS ORDERED: fentaNYL PF VIAL 100 MCG/2 ML VIAL IV ONE (08:45)
[2019-01-30] MEDS ORDERED: MIDAZOLAM HCL/PF 2 MG/2 ML VIAL. IV ONE (08:45)
[2019-01-30] MEDS ORDERED: LIDOCAINE WITH 8.4% SOD BICARB 3 ML DISP.SYRIN. IJ ONE (08:45)
[2019-01-30] MEDS: BRIMONIDINE 0.2% OPHTH SOLUTION 5ML BOTTLE. OU SCH ×2 (09:00→21:00)
[2019-01-30] MEDS ORDERED: FUROSEMIDE 40 MG TABLET. PO SCH (09:00)
[2019-01-30] MEDS ORDERED: NON FORMULARY ITEM (Omeprazole 40 MG) PO SCH (09:00)
[2019-01-30] MEDS ORDERED: AMILORIDE HCL 5 MG PO SCH (09:00)
--- NOTE | 2019-01-30 09:24 | PDOC ---
MODERATE SEDATION ASSESSMENT RISKS/ALTERNATIVES Risks/Alternatives Risks and alternatives of this type of sedation and procedure discussed with: RISK/ALTERNATIVES: Patient H & P ON CHART H & P H & P on chart and reviewed for co-morbid conditions and appropriate labs. H&P ON CHART: Yes STATUS PREG STATUS ASSESSED: Yes MEDS/ALLERGIES REVIEWED Meds/Allergies Reviewed Medications and Allergies including time and route of recently administered narcotics and sedatives. MEDS/ALLERGIES REVIEWED: Yes ASA RATING ASA RATING: II AIRWAY ASSESSMENT Airway Assessment Airway patency, oral function limitations, presence of caps, crowns, dentures, partials, and ability to extend neck assessed. AIRWAY ASSESSMENT: Yes MALLAMPATI SCORE MALLAMPATI SCORE: II PRE-SEDATION ASSESSMENT PRE-SEDATION ASSESSMENT: Yes RENE ESCAMILLA MD Jan 30, 2019 09:24
--- NOTE | 2019-01-30 09:25 | PDOC ---
BRIEF OPERATIVE NOTE Pre-Op Diagnosis Bilateral sacral insufficiency fractures Post-Op Diagnosis same Procedure Performed CT Sacroplasty Surgeon Niya Anesthesia Type: Conscious Sedation Findings Bilateral sacroplasty with good immediate result Complications No immediate RENE ESCAMILLA MD Jan 30, 2019 09:25
--- NOTE | 2019-01-30 10:16 | NUR ---
SW following for discharge planning. Discussed with RN, pt is from home with . PT/OT to be ordered. SW will continue to follow.
--- NOTE | 2019-01-30 10:38 | HP ---
ADMIT DATE: HISTORY OF PRESENT ILLNESS: The patient is an 83-year-old female patient who was transferred from [facility] as she has multiple falls and was found to have bilateral sacral insufficiency fracture. She also has increased uptake around left acetabulum, reflects hardware complication in the setting of arthroplasty, intense uptake about her left glenohumeral joint that may be degenerative versus avascular necrosis. I spoke with Dr. Rosa and he ordered a CT scan of the pelvis and his recommendation was that the patient was a candidate for sacroplasty. I spoke with Dr. Viera about the left acetabular fracture and left glenohumeral increased uptake and he did not recommend any surgical intervention. The patient was therefore transferred to [facility]. We stopped her Eliquis and she is scheduled for sacroplasty on Monday morning. PAST MEDICAL HISTORY: Significant for hypertension, hyperlipidemia, congestive heart failure, likely chronic diastolic congestive heart failure as well as sick sinus syndrome. She was admitted through the Department of [facility] with a complaint of tailbone pain after having a fall in the bathroom. She stated that she was just weak and fell. Denied any loss of consciousness or any head injury. Denied any neck injury. 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 Her lab work showed that she has marked hyponatremia with a serum sodium of 126. Beta natriuretic peptide was high at 26,259. Urinalysis showed that she is positive for nitrite and moderate amount of leukocyte esterase. We did start her on fluid restriction and IV ceftriaxone and her urine culture grew gram-negative rods in the form of Klebsiella oxytoca sensitive to ceftriaxone. PAST SURGICAL HISTORY: Significant for permanent pacemaker placement, bilateral total hip arthroplasty, bilateral carpal tunnel release, trigger finger release, left elbow fracture and bilateral cataract extraction. ALLERGIES: SHE IS ALLERGIC TO SULFA DRUGS, SULFAMETHOXAZOLE, TRIMETHOPRIM, NITROFURANTOIN, METAXALONE, CODEINE AND ACETAMINOPHEN. FAMILY HISTORY: She has two brothers who are . One of her sisters of Alzheimer disease. Father at age of 77 because of CVA and mother at age of 77 because of colon cancer. SOCIAL HISTORY: She is , has one son. She has never smoked, does not drink alcohol. 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 REVIEW OF SYSTEMS: As per history of present illness. PHYSICAL EXAMINATION: GENERAL: On arrival to the [facility], she looked well, slightly pale, but no jaundice, cyanosis or thyromegaly. No jugular venous distention. No lower limb edema. VITAL SIGNS: Her heart rate was 60, blood pressure was 115/51, temperature was 97.8, respiratory rate was 18 and oxygen saturation was 95%. HEAD, EYES, EARS, NOSE AND THROAT: Showed normocephalic, atraumatic. NECK: Supple. HEART: Showed normal first and second heart sounds. No gallop or murmur. CHEST: Clear to auscultation. No crepitation or rhonchi. ABDOMEN: Distended, soft, nontender. NEUROLOGIC: She was awake, alert, responding appropriately. All cranial nerves are intact. EXTREMITIES: She moves extremities without difficulty. She ambulates with a walker. PLAN: To continue with all her medications. Hold the Eliquis and to consult Dr. Rosa for sacroplasty. TOSHA CHANEY MD DR: MC/marie JOB#: [id number] / [id number]
--- NOTE | 2019-01-30 11:05 | RAD ---
Procedure: CT-guided bilateral sacroplasty Clinical Indication: 83-year-old with debilitating back pain from osteoporotic sacral insufficiency fractures. Sedation: Conscious sedation was administered with a total intraprocedural [id number] time of 40 minutes. The patient was monitored by a qualified independent observer throughout the time of sedation. Please refer to the medical record for exact doses of medications utilized to achieve moderate sedation. Antibiotics: Antibiotic was administered intravenously within 1 hour of the procedure start time. Contrast: None Sterility: The procedure was performed in its entirety using appropriate elements of sterile technique. Consent: The procedure was explained in its entirety to the patient or the patients designated customer assistance representative by a member of the treatment team, including a discussion of the risks, benefits and commonly accepted alternatives to the procedure, as well as the expected consequences of no therapy whatsoever. Discussion of the risks included, but was not limited to, those that are most frequent and those that are rare but possibly severe or life-threatening, as well as the possibility of unforeseen complications. Technique and Findings: Following informed consent, the patient was prepped and draped in usual sterile fashion. Preliminary CT scan of the area of interest was performed. 1% lidocaine was used to achieve local anesthesia. A small dermatotomy was made. Under periodic CT surveillance, 2 separate 11-gauge needles were advanced into the sacral Alae bilaterally. Polymethylmethacrylate was then instilled into each side of the sacrum in 2 cc aliquots, with periodic CT surveillance. A total of 6 cc of cement was deposited into each side of the sacrum, and the cement was seen to fill the fracture clefts bilaterally. Both needles were then removed and hemostasis was achieved with manual compression. Complications: No immediate Impression: 1. CT-guided bilateral sacroplasty as described. PQRS Compliance Statement: One or more of the following individualized dose reduction techniques were utilized for this examination: 1. Automated exposure control 2. Adjustment of the mA and/or kV according to patient size 3. Use of iterative reconstruction technique
[2019-01-30] MEDS: LACTOBACILLUS RHAMNOSUS GG 1 CAPSULE. PO SCH ×2 (12:00→21:32)
[2019-01-30] MEDS: ASCORBIC ACID 500 MG TABLET PO SCH ×2 (12:01→21:31)
[2019-01-30] MEDS: MULTIVITAMIN with MINERAL TABLET. PO SCH (12:03)
[2019-01-30] MEDS: CETIRIZINE HCL 10 MG TABLET. PO SCH (12:04)
[2019-01-30] MEDS: AMIODARONE HCL 200 MG TABLET. PO SCH ×2 (12:04→21:31)
[2019-01-30] MEDS: DICLOFENAC SODIUM 1% TOPICAL GEL 100GM TUBE. TP SCH ×3 (12:05→21:32)
[2019-01-30] MEDS: CHOLECALCIFEROL (VITAMIN D3) 1,000 UNIT TABLET PO SCH (12:12)
--- NOTE | 2019-01-30 13:18 | PDOC2 ---
CARDIAC CONSULT DATE OF CONSULT Date of Consult DATE: 01/30/19 TIME: 13:06 REASON FOR CONSULT Reason for Consult: on eliquis, anemia REFERRING PHYSICIAN Referring Physician: Rafael SOURCE Source: Chart review, Patient HISTORY OF PRESENT ILLNESS HISTORY OF PRESENT ILLNESS This is a pleasant 83 yo female admitted for complains of falls. Reports that in the last month she has fallen twice with both times associated with weakness. She was at [facility] initially and was picked up by EMS from assisted living due to falls. She could not get up. She was walking and felt her knees were weak when she was in the bathroom and then just buckled and fell and obtained sacral and left hip fractures. No passing out or dizziness. She was also noted with UTI and treated with prior hx of chronic cystitis. She was then transferred to [facility] for further treatement and evaluation and just had sacroplasty. During the time of her fall ther was no associated palpitations, SOA or chest pain. She has been on and off anticoagulation and told me that she just had cardioversion for her AFIB 1-2 weeks ago and being treated with bolus dosing of amiodarone. Consult is to verify need of anticoagulation in relation to her frequent falls and predisposition to injury. Denies any past GI bleed, no blood or black stools. PAST MEDICAL HISTORY Cardiovascular: AFIB, CAD, CHF, HTN, Hyperlipidemia, Other (SSS; ca rdiomyopathy) Pulmonary: No pertinent hx CENTRAL NERVOUS SYSTEM: Other (No pertinent history) GI: No pertinent hx Heme/Onc: Anemia NOS Hepatobiliary: No pertinent hx Psych: No pertinent hx Musculoskeletal: low back pain, Osteoarthritis Infectious disease: No pertinent hx ENT: Other (glaucoma) Renal/: Chronic renal insuff (CKD3), UTI, Other (chronic cystitis) Endocrine: Osteoporosis Dermatology: No pertinent hx PAST SURGICAL HISTORY Past Surgical History: Pacemaker, Arthroscopy (left elbow fracture repair), Cataract Removal, Total hip replacement (bilateral), Other (cystoscopy, carpal tunnel repair; trigger finger release) FAMILY HISTORY Family History: Stroke (father) SOCIAL HISTORY Smoke: No ALCOHOL: none Drugs: None Lives: with Family CURRENT MEDICATIONS CURRENT MEDICATIONS Current Medications Medications (Trade) Dose Ordered Sig/Juan Route PRN Reason Start Time Stop Time Status Last Admin Dose Admin Vitamin D (Vitamin D3) 2,000 unit DAILY PO 01/30/19 09:00 01/30/19 12:12 Atorvastatin Calcium (Lipitor) 5 mg QHS PO 01/29/19 21:00 01/29/19 20:58 Amiodarone HCl (Cordarone) 200 mg BID PO 01/29/19 21:00 01/30/19 12:04 Ascorbic Acid (Vitamin C) 500 mg BID PO 01/29/19 21:00 01/30/19 12:01 Carvedilol (Coreg) 6.25 mg BIDWMEALS PO 01/29/19 17:00 01/30/19 12:03 Cetirizine HCl (ZyrTEC) 10 mg DAILY PO 01/30/19 09:00 01/30/19 12:04 Diclofenac Sodium (Voltaren) 1 gerry TID TP 01/29/19 14:00 01/30/19 12:05 Furosemide (Lasix) 40 mg DAILY PO 01/30/19 09:00 01/30/19 12:01 Lactobacillus Rhamnosus (Culturelle) 1 cap BID PO 01/29/19 21:00 01/30/19 12:00 Multivitamins (Thera M Plus) 1 tab DAILY PO 01/30/19 09:00 01/30/19 12:03 Lidocaine HCl (Buffered Lidocaine 1%) 3 ml 1X ONCE IJ 01/30/19 08:45 01/30/19 08:46 DC 01/30/19 08:50 Midazolam HCl (Versed) 2 mg 1X ONCE IV 01/30/19 08:45 01/30/19 08:46 DC 01/30/19 08:45 Fentanyl Citrate (Fentanyl 2ml Vial) 100 mcg 1X ONCE IV 01/30/19 08:45 01/30/19 08:46 DC 01/30/19 08:45 Cefazolin Sodium 50 ml @ 100 mls/hr 1X ONCE IV 01/30/19 08:45 01/30/19 09:14 DC 01/30/19 08:45 ALLERGIES ALLERGIES: Coded Allergies: Sulfa (Sulfonamide Antibiotics) (Verified Allergy, Intermediate, Hives, 06/20/17) codeine (Verified Allergy, Intermediate, Hives, 06/20/17) metaxalone (Verified Allergy, Intermediate, Hives, 06/20/17) nitrofurantoin (Verified Allergy, Intermediate, Rash, 06/20/17) phenazopyridine (Verified Allergy, Intermediate, 06/20/17) ROS Review of System 14 point ROS evaluated with pertinent positives noted per HPI PHYSICAL EXAM General: Alert, Oriented X3, Cooperative, No acute distress HEENT: Atraumatic, Mucous membr. moist/pink Lungs: Other (basilar crackles) Heart: Regular rate, Other (3/6 systolic murmur to LLS border) Abdomen: Soft, No tenderness Extremities: No cyanosis, Other (3+ bilateral LE pitting edema) Skin: No breakdown, No significant lesion Neuro: Normal speech, Sensation intact Psych/Mental Status: Mental status NL, Mood NL MUSCULOSKELETAL: Osteoarthritic changes both hands VITALS/I&O VITALS/I&O: Vital Signs Date Time Temp Pulse Resp B/P (MAP) Pulse Ox O2 Delivery O2 Flow Rate FiO2 01/30/19 12:33 95 Nasal Cannula 3.0 01/30/19 12:04 60 151/51 01/30/19 11:00 98.2 16 98.2 I & O 01/29/19 01/29/19 01/30/19 15:00 23:00 07:00 Intake Total 360 ml Balance 360 ml LABS Lab: Laboratory Tests Test 01/30/19 03:45 White Blood Count 6.4 x10^3/uL (4.0-11.0) Red Blood Count 2.37 x10^6/uL (3.50-5.40) L Hemoglobin 7.8 g/dL (12.0-15.5) L Hematocrit 23.4 % (36.0-47.0) L Mean Corpuscular Volume 99 fL (79-100) Mean Corpuscular Hemoglobin 33 pg (25-35) Mean Corpuscular Hemoglobin Concent 33 g/dL (31-37) Red Cell Distribution Width 15.7 % (11.5-14.5) H Platelet Count 212 x10^3/uL (140-400) Neutrophils (%) (Auto) 73 % (31-73) Lymphocytes (%) (Auto) 8 % (24-48) L Monocytes (%) (Auto) 12 % (0-9) H Eosinophils (%) (Auto) 7 % (0-3) H Basophils (%) (Auto) 1 % (0-3) Neutrophils # (Auto) 4.7 x10^3/uL (1.8-7.7) Lymphocytes # (Auto) 0.5 x10^3/uL (1.0-4.8) L Monocytes # (Auto) 0.8 x10^3/uL (0.0-1.1) Eosinophils # (Auto) 0.4 x10^3/uL (0.0-0.7) Basophils # (Auto) 0.0 x10^3/uL (0.0-0.2) Prothrombin Time 18.5 SEC (11.7-14.0) H Prothrombin Time INR 1.6 (0.8-1.1) H Activated Partial Thromboplast Time 47 SEC (24-38) H Sodium Level 132 mmol/L (136-145) L Potassium Level 4.1 mmol/L (3.5-5.1) Chloride Level 99 mmol/L (98-107) Carbon Dioxide Level 26 mmol/L (21-32) Anion Gap 7 (6-14) Blood Urea Nitrogen 45 mg/dL (7-20) H Creatinine 1.8 mg/dL (0.6-1.0) H Estimated GFR (Cockcroft-Gault) 26.8 BUN/Creatinine Ratio 25 (6-20) H Glucose Level 93 mg/dL (70-99) Calcium Level 8.2 mg/dL (8.5-10.1) L Total Bilirubin 0.4 mg/dL (0.2-1.0) Aspartate Amino Transferase (AST) 30 U/L (15-37) Alanine Aminotransferase (ALT) 21 U/L (14-59) Alkaline Phosphatase 129 U/L (46-116) H Total Protein 6.2 g/dL (6.4-8.2) L Albumin 2.4 g/dL (3.4-5.0) L Albumin/Globulin Ratio 0.6 (1.0-1.7) L Laboratory Tests 01/30/19 03:45 Laboratory Tests 01/30/19 03:45 EKG EKG * Post DCCV device check [01/17/2019 [facility] WANIGAN CLERK-P programming. Device function appears normal. Presenting Rhythm Post DCCV: AP-BiVP at 60bpm BiVpacing: >99% No events noted since last check. Thoracic Impedance trend is stable for this patient. Changes made to programming: Mode changed to DDDR from VVIR Hardy remote monitoring is in place. Report to SANDBLAST OR SHOTBLAST EQUIPMENT TENDER on EPS for review and cosign. ECHOCARDIOGRAM ECHOCARDIOGRAM Interpretation Summary 12/08/2018 Normal left ventricular cavity size with mild concentric left ventricular hypertrophy Borderline ejection fraction estimated at 50% Mildly reduced right ventricular function Device leads seen in the right atrial and right ventricle Severe left atrial enlargement Mildly dilated right atrium Mild mitral regurgitation Moderate tricuspid regurgitation Mild to moderate aortic regurgitation Mild to moderate pulmonary regurgitation No pericardial effusion Estimated peak systolic PA pressure 35 mmHg When compared to prior echocardiogram performed on 01/16/2018 ejection fraction was estimated at 40%. The previously reported large area of anterior lateral apical hypokinesis cannot be appreciated in today's study. The estimated peak systolic PA pressure was 55 mmHg. In today's study the ejection fraction has improved. The patient was in atrial fibrillation in the prior study and now is in a ventricular paced rhythm. STRESS TEST STRESS TEST FINDINGS: 12/08/2018 Pharmacological Stress Electrocardiogram: The patient's resting heart rate was 60 bpm and the resting blood pressure was 159/83. The patients peak stress heart rate was 61 bpm and the peak stress blood pressure was 106/52. The patient experienced shortness of breath. The resting ECG shows ventricular paced rhythm. Following Regadenoson infusion there are no new diagnostic ECG changes. Rare PVC was seen. Conclusion: Pharmacologic stress ECG is nondiagnostic for ischemia. Onvpowdlw-dz-Hhvbhemhnq Count Ratio: 0.43 (normal = or < 0.52). Scintigraphic Findings: Raw images reveal the left ventricular cavity is normal in size. There is normal pulmonary tracer uptake. There is a mild degree of breast attenuation present. No transient ischemic dilation is present. Tomographic images were reconstructed in three orthogonal views. There is a small sized mild intensity apical inferolateral reversible perfusion defect. All myocardial segments appear viable. Polar coordinate map identifies no perfusion abnormalities. TID Ratio: 0.99 (normal <1.36). Summed Stress Score: 2 , Summed Rest Score: 2 Regional Wall Thickening and Motion Post Stress: There is normal left ventricular wall motion and thickening of all myocardial segments. Left Ventricular Ejection Fraction = 61 %. Left Ventricular End Diastolic Volume: 60 mL SUMMARY/OPINION: This study is abnormal with a small sized mild intensity apical inferolateral perfusion defect seen on stress imaging consistent with ischemia. Left ventricular systolic function is normal. There are no high risk prognostic indicators present. The pharmacologic ECG portion of the study is nondiagnostic for ischemia due to paced rhythm. The summed stress score is 2. There is no evidence of transient ischemic dilatation. Left ventricular ejection fraction was calculated at 61%. Comparison is made to prior regadenoson thallium stress study performed on 01/18/2018. There was a previously seen moderate sized mild to moderate intensi ty mixed defect involving the base to apical inferior wall and the true apex. There was reduced thickening and mild hypokinesis of the mid to apical inferior wall and true LV apex. These findings are not seen on today's study. Previous ejection fraction was 46%. Previous study was deemed high risk. HEART CATH HEART CATH Non obstructive by cath 01/22/2018 ASSESSMENT/PLAN ASSESSMENT/PLAN 1. 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 S/P sacroplasty. Ortho has been notified per PCP, no surgical plans. 2. PAFIB: AV pacing per recent EKG. Recent CVN 01/17/2019 on eliquis and amiodarone 3. SSS: WANIGAN CLERK-P in situ. Paced rhythm 4. HTN: controlled 5. HLP 6. CAD: clinically stable. Recent MPI as noted above 7. Acute on chronic diastolic/systolic CHF: still needing O2 8. AMY on CKD3: prerenal 9. Anemia: Hgb 7.8, fracture contributing. 10. Coagulopathy 11. Hx of cardiomyopathy: Recent EF at 50% Recommendations 1. EKG. Will interrogate device to note function in relation to her fall and note afib burden 2. Continue with amiodarone. May need to reduce to 1 tab daily, will defer to her malt roaster, Dr. Guerrero 3. CXR, hemogram. Lasix therapy and extra dose PRN 4. Check hemoccult. So far no obvious bleed. Her anemia could potentially be related to her fractures with underlying chronic disease. Unless there is obvious bleed particularly GI bleed, I would recommend continuing her eliquis and may place on lower dose at least for another 2 weeks then reevaluate given her recent CVN 5. Consider [facility] outpt referral. 6. Transfusion pending hemogram. 7. Continue statin and coreg. JULIANNA LIRA CLOTH WINDER Jan 30, 2019 13:18
--- NOTE | 2019-01-30 15:39 | EKG ---
[facility] [address] [place] [address] Test Date: 2019-01-30 Test Time: 16:32:48 Pat Name: LEIDY BHANDARI Department: Room: [facility] Gender: F Criminal Psychologist: RITA : 1935 Requested By: JULIANNA LIRA Order Number: [id number] Reading MD: Measurements Intervals [place] Rate: 61 P: 0 ND: 94 QRS: -168 QRSD: 38 T: 33 QT: 464 QTc: 469 Interpretive Statements PACEMAKER SPIKES NOTED RI6.01 Compared to ECG 12/16/2016 09:55:40 Atrial fibrillation no longer present Left-axis deviation no longer present Myocardial infarct finding no longer present
--- NOTE | 2019-01-30 15:42 | RAD ---
Exam: Chest one view INDICATION: CHF TECHNIQUE: Frontal view of the chest Comparisons: 12/16/2016 FINDINGS: Pacer with leads terminating the right atrium, ventricle and coronary sinus. Heart is enlarged. Pulmonary vessels are within normal limits. The lung and pleural spaces are clear. IMPRESSION: Cardiomegaly without acute pulmonary process identified. Electronically signed by: Dottie Waldrop MD (01/30/2019 3:39 PM) [facility]
[2019-01-30] MEDS ORDERED: FUROSEMIDE 40 MG/4 ML VIAL. IVP ONE (15:45)
[2019-01-30 16:25] LABS: HEMATOCRIT 22.5 % (36.0-47.0); HEMOGLOBIN 7.4 g/dL (12.0-15.5); RED BLOOD COUNT 2.27 x10^6/uL (3.50-5.40); RED CELL DISTRIBUTION WIDTH 16.1 % (11.5-14.5); WHITE BLOOD COUNT 7.5 x10^3/uL (4.0-11.0)
[2019-01-30] MEDS: ATORVASTATIN CALCIUM 10 MG TABLET. PO SCH (21:31)
--- NOTE | 2019-01-30 23:19 | PN ---
DATE: 01/30/2019 SUBJECTIVE: The patient was transferred yesterday from [facility] as she has bilateral sacral insufficiency fracture and we did consult Dr. Houston who ordered CT scan of the pelvis and recommended that the patient is a good candidate for sacroplasty. Her Eliquis was held for more than 48 hours and she actually underwent bilateral sacroplasty with good immediate result. When I saw her this morning, she was resting slightly propped up in bed, in no apparent respiratory distress. Denied any complaint. The nursing staff did not voice any concern except that she was slightly lethargic because of conscious sedation. Otherwise, she looked pale, but no jaundice, cyanosis or thyromegaly. No jugular venous distension. No lower limb edema. VITAL SIGNS: Her heart rate was 60, blood pressure 140/51, temperature was 98.1, respiratory rate was 18 and oxygen saturation was 99% on 2 liters of oxygen. The rest of clinical exam is stable. LABORATORY DATA: Her lab work this morning showed a white cell count 6400, hemoglobin 7.8, hematocrit 23.4, MCV 99 and platelet count of 112,000. Her serum sodium is up at 132, potassium 4.1, chloride 99, bicarbonate 26, anion gap of 7, BUN 45, creatinine 1.8, estimated GFR was 27 mL per minute. Her glucose was 93, calcium was 8.2. Total bilirubin, AST, ALT, alkaline phosphatase normal. Total protein was 6.2, albumin was 2.4. Her prothrombin time was 10.5, INR 1.6, aPTT was 47. ASSESSMENT: Fall with bilateral sacral insufficiency fracture, status post successful sacroplasty. She has multiple other medical problems including hypertension, hyperlipidemia, congestive heart failure, likely due to chronic diastolic congestive heart failure, sick sinus syndrome, probably atrial fibrillation. She has also anemia. In fact, her H and H has dropped steadily from 10.2 down to today's value of 7.8 and 23.4. I will consult the cardiology team to see whether she really needs to be on anticoagulation given that she has steadily losing blood. Meanwhile, we will discontinue her ceftriaxone and switch her to oral cefdinir. Start physical and occupational therapy. TOSHA CHANEY MD DR: MC/marie JOB#: [id number] / [id number]
[2019-01-31 03:00] VITALS: BP 123/53
[2019-01-31 04:25] LABS: HEMATOCRIT 22.3 % (36.0-47.0); HEMOGLOBIN 7.5 g/dL (12.0-15.5); RED BLOOD COUNT 2.27 x10^6/uL (3.50-5.40); WHITE BLOOD COUNT 6.6 x10^3/uL (4.0-11.0)
[2019-01-31 05:07] LABS: CALCIUM 8.1 mg/dL (8.5-10.1); CREATININE 1.6 mg/dL (0.6-1.0); GFR 30.7; POTASSIUM 3.8 mmol/L (3.5-5.1)
[2019-01-31] MEDS: oxyCODONE/APAP 5/325 1 TAB TABLET PO PRN ×3 (06:42→20:48)
[2019-01-31 07:00] VITALS: BP 147/58
[2019-01-31] MEDS ORDERED: POTASSIUM CHLORIDE 20 MEQ TABLET.ER. PO ONE (07:45)
[2019-01-31] MEDS ORDERED: FUROSEMIDE 40 MG/4 ML VIAL. IVP ONE ×2 (07:45→16:30)
[2019-01-31] MEDS: CETIRIZINE HCL 10 MG TABLET. PO SCH (08:49)
[2019-01-31] MEDS: MULTIVITAMIN with MINERAL TABLET. PO SCH (08:49)
[2019-01-31] MEDS: PANTOPRAZOLE 40 MG TABLET.DR. PO SCH (08:49)
[2019-01-31] MEDS: CARVEDILOL 6.25 MG TABLET. PO SCH ×2 (08:49→16:57)
[2019-01-31] MEDS: ASCORBIC ACID 500 MG TABLET PO SCH ×2 (08:49→20:47)
[2019-01-31] MEDS: LACTOBACILLUS RHAMNOSUS GG 1 CAPSULE. PO SCH ×2 (08:49→20:47)
[2019-01-31] MEDS: CHOLECALCIFEROL (VITAMIN D3) 1,000 UNIT TABLET PO SCH (08:49)
[2019-01-31] MEDS: AMIODARONE HCL 200 MG TABLET. PO SCH ×2 (08:52→20:47)
[2019-01-31] MEDS: DICLOFENAC SODIUM 1% TOPICAL GEL 100GM TUBE. TP SCH ×3 (08:54→20:50)
[2019-01-31] MEDS: BRIMONIDINE 0.2% OPHTH SOLUTION 5ML BOTTLE. OU SCH ×2 (08:54→21:00)
--- NOTE | 2019-01-31 10:10 | PN ---
DATE: 01/31/2019 SUBJECTIVE: The patient is sitting comfortably in her chair, in no apparent respiratory distress. She continued to complain of shortness of breath on exertion. She apparently was seen by the Cardiology and did not recommend discontinuing her Eliquis. PHYSICAL EXAMINATION: GENERAL: When I examined her this morning, she looked pale. No jaundice, cyanosis or thyromegaly. No jugular venous distention. No lower limb edema. VITAL SIGNS: Her heart rate was 56, blood pressure 147/58, temperature was 98.1, respiratory rate was 16, and oxygen saturation was 96% on 3 liters oxygen. HEAD, EYES, EARS, NOSE AND THROAT: Showed normocephalic, atraumatic. NECK: Supple. HEART: Showed normal first and second heart sounds with no gallop, rub or murmur. CHEST: Clear to auscultation. No crepitation or rhonchi. ABDOMEN: Distended, soft, nontender. NEUROLOGIC: She was awake, alert, responding appropriately. All cranial nerves are intact. She moves extremities without difficulty, ambulates with a walker. Her intake over the last 24 hours and output were incompletely recorded. LABORATORY DATA: Her lab work this morning showed her white cell count to be 6600, hemoglobin 7.5, hematocrit 22, MCV 98 and platelet count 104,000. Her chemistry showed a serum sodium 135, potassium 3.8, chloride 99, bicarbonate 27, anion gap of 9, BUN 40, creatinine 1.6. Estimated GFR was 30.7. Her glucose was 92, calcium was 8.1. Her serum iron 22, TIBC was 106, iron saturation was 11% and ferritin was 412. Her beta natriuretic peptide was 11,471. ASSESSMENT AND PLAN: Recurrent falls with resultant bilateral sacral insufficiency fracture status post sacroplasty. 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 Dr. Viera did not recommend any surgical intervention. Other medical problems include chronic diastolic congestive heart failure, hypertension, hyperlipidemia, sick sinus syndrome, status post permanent pacemaker placement. The patient definitely continues to be symptomatic. She continued to be short of breath and requires oxygen. I have already ordered stool for occult blood, change her Lasix to be given IV and consult the corrections caseworker to arrange for her to be placed in a fdc facility. TOSHA CHANEY MD DR: Norma JOB#: [id number] / [id number]
[2019-01-31 11:00] VITALS: BP 123/45
--- NOTE | 2019-01-31 11:51 | NUR ---
GWENDOLYN following for discharge planning. Chart reviewed, discussed with RN. GWENDOLYN met with pt to discuss discharge planning. Pt is from home with , in a mostly one level home, steps to the garage only, however, pt uses the front door to get to the car so she doesn't have to use the steps. Pt reports her drives them for errands and appointments and her son, Norm lives nearby and is able to help too. Pt reported they have shower rails and a shower chair in the home. PT/OT recommending SNU, pt agreeable. Pt reported she has been to [facility] in the past, but would like to try [facility] this time. SW faxed referral, awaiting acceptance decision and insurance auth. RN notified. GWENDOLYN will continue to follow.
[2019-01-31 15:00] VITALS: BP 132/48
--- NOTE | 2019-01-31 17:34 | PDOC ---
CARDIO Progress Notes Date and Time Date of Service 01/31/2019 Time of Evaluation 1500 Subjective Subjective: No Chest Pain, No shortness of breath, No Palpitations Vitals Vitals Vital Signs Date Time Temp Pulse Resp B/P (MAP) Pulse Ox O2 Delivery O2 Flow Rate FiO2 01/31/19 16:57 60 123/45 01/31/19 16:44 96 Nasal Cannula 2.0 01/31/19 11:00 97.9 16 97.9 Weight Weight [ ] Input and Output Intake and Output Intake and Output 01/31/19 07:00 # Voids 8 # Bowel Movements 4 Laboratory Labs Laboratory Tests Test 01/31/19 03:25 White Blood Count 6.6 x10^3/uL (4.0-11.0) Red Blood Count 2.27 x10^6/uL (3.50-5.40) Hemoglobin 7.5 g/dL (12.0-15.5) Hematocrit 22.3 % (36.0-47.0) Mean Corpuscular Volume 98 fL (79-100) Mean Corpuscular Hemoglobin 33 pg (25-35) Mean Corpuscular Hemoglobin Concent 34 g/dL (31-37) Red Cell Distribution Width 16.0 % (11.5-14.5) Platelet Count 204 x10^3/uL (140-400) Sodium Level 135 mmol/L (136-145) Potassium Level 3.8 mmol/L (3.5-5.1) Chloride Level 99 mmol/L (98-107) Carbon Dioxide Level 27 mmol/L (21-32) Anion Gap 9 (6-14) Blood Urea Nitrogen 40 mg/dL (7-20) Creatinine 1.6 mg/dL (0.6-1.0) Estimated GFR (Cockcroft-Gault) 30.7 Glucose Level 92 mg/dL (70-99) Calcium Level 8.1 mg/dL (8.5-10.1) Iron Level 22 ug/dL (50-170) Total Iron Binding Capacity 206 ug/dL (250-450) Iron Saturation 11 % (15-34) Ferritin 412 ng/mL (8-252) Physical Exam HEENT: Neck Supple W Full Motion Chest: Symmetric LUNGS: Other (dimnished bases) Heart: S1S2, RRR Abdomen: Soft N/T Extremities: Other (3-4+ bilateral LE pitting edema) Neurology: alert, oriented, follow commands Assessment Assessment 1. 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 S/P sacroplasty. Ortho has been notified per PCP, no surgical plans. 2. PAFIB: AV pacing per recent EKG. Recent CVN 01/17/2019 on eliquis and amiodarone 3. SSS: MANAGER TESTING-P in situ. Paced rhythm. 0 AFIB burden since CVN, normal functioning device 4. HTN: controlled 5. HLP 6. CAD: clinically stable. Recent MPI as noted above 7. Acute on chronic diastolic/systolic CHF: still needing O2 8. AMY on CKD3: prerenal 9. Anemia: Hgb 7.8, fracture contributing with Fe deficiency. per PCP 10. Coagulopathy 11. Hx of cardiomyopathy: Recent EF at 50% Recommendations 1. Continue with amiodarone. May need to reduce to 1 tab daily, will defer to her roll up machine operator, Dr. Guerrero 2. Lasix therapy and extra dose PRN 3. Awaiting hemoccult. So far no obvious bleed. Her anemia could potentially be related to her fractures with underlying chronic disease. Unless there is obvious bleed particularly GI bleed, I would recommend continuing her eliquis and may place on lower dose at least for another 2 weeks then reevaluate given her recent CVN 4. Consider [facility] outpt referral. 5. Continue statin and coreg. JULIANNA LIRA INTERRELATED SPECIAL EDUCATION TEACHER Jan 31, 2019 17:34
[2019-01-31 18:29] LABS: PROTHROMBIN TIME PATIENT 15.1 SEC (11.7-14.0)
[2019-01-31 19:20] VITALS: BP 115/41
[2019-01-31] MEDS: ATORVASTATIN CALCIUM 10 MG TABLET. PO SCH (20:47)
[2019-01-31 23:37] VITALS: BP 129/46
[2019-02-01 04:01] VITALS: BP 142/48
[2019-02-01 06:41] LABS: HEMATOCRIT 23.9 % (36.0-47.0); RED BLOOD COUNT 2.42 x10^6/uL (3.50-5.40); WHITE BLOOD COUNT 8.4 x10^3/uL (4.0-11.0)
[2019-02-01 07:00] VITALS: BP 142/47
[2019-02-01 07:01] LABS: CALCIUM 8.4 mg/dL (8.5-10.1); CREATININE 1.8 mg/dL (0.6-1.0); GFR 26.8; POTASSIUM 3.8 mmol/L (3.5-5.1)
[2019-02-01] MEDS ORDERED: APIXABAN 2.5 MG TABLET. PO SCH (09:00)
[2019-02-01] MEDS: PANTOPRAZOLE 40 MG TABLET.DR. PO SCH (09:15)
[2019-02-01] MEDS: CARVEDILOL 6.25 MG TABLET. PO SCH ×2 (09:15→17:08)
[2019-02-01] MEDS: LACTOBACILLUS RHAMNOSUS GG 1 CAPSULE. PO SCH ×2 (09:16→21:15)
[2019-02-01] MEDS: ASCORBIC ACID 500 MG TABLET PO SCH ×2 (09:16→21:15)
[2019-02-01] MEDS: CETIRIZINE HCL 10 MG TABLET. PO SCH (09:16)
[2019-02-01] MEDS: FUROSEMIDE 40 MG TABLET. PO SCH (09:16)
[2019-02-01] MEDS: AMIODARONE HCL 200 MG TABLET. PO SCH ×2 (09:17→21:16)
[2019-02-01] MEDS: CHOLECALCIFEROL (VITAMIN D3) 1,000 UNIT TABLET PO SCH (09:17)
[2019-02-01] MEDS: MULTIVITAMIN with MINERAL TABLET. PO SCH (09:17)
[2019-02-01] MEDS: DICLOFENAC SODIUM 1% TOPICAL GEL 100GM TUBE. TP SCH ×3 (09:19→21:17)
[2019-02-01] MEDS: BRIMONIDINE 0.2% OPHTH SOLUTION 5ML BOTTLE. OU SCH ×2 (09:49→21:15)
[2019-02-01 11:00] VITALS: BP 138/50
--- NOTE | 2019-02-01 11:35 | NUR ---
SS following up with discharge planning. SS contacted [facility], ; fax [phone], for update on acceptance decision and insurance authorization. Christine from [facility] reported that pt is accepted pending insurance authorization. She reported that authorization request was submitted yesterday and auth is still pending at this time. SS spoke with Dr. Hall and was notified that he will put in discharge orders for pt. SS will await insurance authorization and will proceed accordingly.
[2019-02-01] MEDS ORDERED: FURO40TA4 PO (11:54)
[2019-02-01] MEDS ORDERED: APIX2.5T PO (11:54)
[2019-02-01] MEDS ORDERED: AMIO200T4 PO (11:57)
--- NOTE | 2019-02-01 12:05 | SNU/HH DC ---
DISCHARGE ORDERS DISCHARGE INFORMATION: DISCHARGE DATE: Feb 01, 2019 FINAL DIAGNOSIS Problems Medical Problems: (1) Acute kidney injury superimposed on CKD Status: Chronic (2) Acute on chronic systolic and diastolic heart failure, NYHA class 1 Status: Chronic (3) Afib Status: Chronic (4) CAD (coronary artery disease) Status: Chronic (5) Cardiomyopathy Status: Chronic (6) Coagulopathy Status: Chronic (7) HLP (hyperkeratosis lenticularis perstans) Status: Chronic (8) HTN (hypertension) Status: Chronic (9) Sacral fracture Status: Acute (10) SSS (sick sinus syndrome) Status: Chronic CONDITION ON DISCHARGE: Stable CODE STATUS: Code Status: Full LONG-TERM: SNF STAY <30 DAYS: Yes POST DISCHARGE ORDERS: ACTIVITY ORDERS: Activity as tolerated BATHING ORDERS: Shower-keep dressing dry, No Tub Bath until see Dr. HILL AFTER DISCHARGE: Cardiac WOUND/INCISION CARE: Ice to area for comfort, Keep wound/cast CDI, Change dressing, Reinforce dressing PRN CHECKS AFTER DISCHARGE: CHECKS AFTER DISCHARGE: Check blood press - daily TREATMENT/EQUIPMENT ORDERS: ADAPTIVE EQUIPMENT NEEDED: None Physical Therapy For: Evalulation/Treatment Occupational Therapy For: Evaluation/Treatment DISCHARGE MEDICATIONS: Home Meds Active Scripts Amiodarone Hcl (AMIODARONE HCL) 200 Mg Tablet, 1 TAB PO BID for afib for 30 Days, #60 TAB 1 Refill Prov:TOSHA CHANEY MD 02/01/19 Furosemide (FUROSEMIDE) 40 Mg Tablet, 1 TAB PO DAILY for chf for 30 Days, #30 TAB 5 Refills Prov:TOSHA CHANEY MD 02/01/19 Apixaban (ELIQUIS) 2.5 Mg Tablet, 2.5 MG PO BID for afib for 30 Days, #60 TAB Prov:TOSHA CHANEY MD 02/01/19 Oxycodone Hcl/Acetaminophen (OXYCODONE-ACETAMINOPHEN 5-325) 1 Each Tablet, 1 TAB PO PRN Q4HRS PRN for PAIN MOD TO SEV, #45 TAB Prov:CHAYO SRIVASTAVA MD 06/23/17 Reported Medications Estrogens, Conjugated (PREMARIN) 0.625 Mg Tablet, 1 TAB PO PRN PRN for ITCHING, #30 TAB 11 Refills 12/16/16 Flecainide Acetate (FLECAINIDE ACETATE) 100 Mg Tablet, 75 MG PO BID, TAB 12/16/16 Clotrimazole/Betamethasone Dip (CLOTRIMAZOLE-BETAMETHASONE CRM) 15 Gm Cream..g., 1 MIKE TP PRN BID PRN for ITCHING, #30 GM 1 Refill 12/16/16 Brimonidine Tartrate/Timolol (COMBIGAN EYE DROPS) 5 Ml Drops, 0.15 ML EACHEYE BID, % 08/03/16 Brimonidine Tartrate (BRIMONIDINE TARTRATE) 5 Ml Drops, 5 ML OP, DROP 08/03/16 Pravastatin Sodium (PRAVASTATIN SODIUM) 40 Mg Tablet, 2 TAB PO QHS, #90 TAB 1 Refill 08/03/16 Omeprazole (OMEPRAZOLE) 40 Mg Capsule.dr, 2 CAP PO DAILY, #30 CAP 3 Refills 08/03/16 Glucosamine/D3/Boswellia Cher (OSTEO BI-FLEX CAPLET) 1 Each Tablet, 200-250 MG PO BID, TAB 08/03/16 Cholecalciferol (Vitamin D3) (D3-2000) 2,000 Unit Capsule, 2000 UNIT PO DAILY, CAP 08/03/16 Discontinued Reported Medications Amiloride Hcl (AMILORIDE HCL) 5 Mg Tablet, 5 MG PO DAILY, TAB 06/19/17 Metoprolol Succinate (METOPROLOL SUCCINATE ( XL )) 25 Mg Tab.er.24h, 2 TAB PO DAILY, #30 TAB 5 Refills 12/16/16 Losartan Potassium (LOSARTAN POTASSIUM) 50 Mg Tablet, 50 MG PO DAILY, TAB 12/16/16 Apixaban (ELIQUIS) 5 Mg Tablet, 5 MG PO BID, TAB 08/03/16 Discontinued Scripts Ciprofloxacin Hcl (CIPRO) 500 Mg Tablet, 1 TAB PO BID, #14 TAB Prov:YOEL RAIN MD 08/04/16 TOSHA CHANEY MD Feb 01, 2019 12:05
--- NOTE | 2019-02-01 12:11 | NUR ---
SS following up with discharge planning. [facility] received for [facility] unit. SS phoned and faxed discharge orders to [facility], ; fax [phone]. SS will await insurance authorization and will proceed accordingly.
[2019-02-01] MEDS ORDERED: ANTI-COAG MONITOR BY PHARMACY. MC PRN (12:45)
[2019-02-01] MEDS: oxyCODONE/APAP 5/325 1 TAB TABLET PO PRN ×2 (14:02→19:02)
--- NOTE | 2019-02-01 14:37 | PDOC ---
JULIANNA LIRA JINGLE WRITER 02/01/19 1437: CARDIO Progress Notes Date and Time Date of Service 02/01/2019 Time of Evaluation 1420 Subjective Subjective: No Chest Pain, No shortness of breath, No Palpitations Vitals Vitals Vital Signs Date Time Temp Pulse Resp B/P (MAP) Pulse Ox O2 Delivery O2 Flow Rate FiO2 02/01/19 14:02 Room Air 02/01/19 09:17 60 142/47 02/01/19 07:00 97.4 16 94 97.4 01/31/19 23:37 2.0 Weight Weight [ ] Input and Output Intake and Output Intake and Output 02/01/19 07:00 Intake Total 1300 ml Output Total 1400 ml Balance -100 ml Intake Oral 1300 ml Output Urine Total 1400 ml # Voids 1 Laboratory Labs Laboratory Tests Test 01/31/19 18:04 02/01/19 05:35 Prothrombin Time 15.1 SEC (11.7-14.0) Prothromb Time International Ratio 1.2 (0.8-1.1) White Blood Count 8.4 x10^3/uL (4.0-11.0) Red Blood Count 2.42 x10^6/uL (3.50-5.40) Hemoglobin 8.0 g/dL (12.0-15.5) Hematocrit 23.9 % (36.0-47.0) Mean Corpuscular Volume 99 fL (79-100) Mean Corpuscular Hemoglobin 33 pg (25-35) Mean Corpuscular Hemoglobin Concent 34 g/dL (31-37) Red Cell Distribution Width 16.0 % (11.5-14.5) Platelet Count 231 x10^3/uL (140-400) Sodium Level 135 mmol/L (136-145) Potassium Level 3.8 mmol/L (3.5-5.1) Chloride Level 99 mmol/L (98-107) Carbon Dioxide Level 27 mmol/L (21-32) Anion Gap 9 (6-14) Blood Urea Nitrogen 43 mg/dL (7-20) Creatinine 1.8 mg/dL (0.6-1.0) Estimated GFR (Cockcroft-Gault) 26.8 Glucose Level 88 mg/dL (70-99) Calcium Level 8.4 mg/dL (8.5-10.1) Physical Exam HEENT: Neck Supple W Full Motion Chest: Symmetric LUNGS: Other (dimnished bases) Heart: S1S2, RRR Abdomen: Soft N/T Extremities: Other (3+ bilateral LE pitting edema) Neurology: alert, oriented, follow commands Assessment Assessment 1. 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 S/P sacroplasty. Ortho has been notified per PCP, no surgical plans. 2. PAFIB: AV pacing per recent EKG. Recent CVN 01/17/2019 on eliquis and amiodarone 3. SSS: DIRECTOR SALES SUPPORT-P in situ. Paced rhythm. 0 AFIB burden since CVN, normal functioning device 4. HTN: controlled 5. HLP 6. CAD: clinically stable. Recent MPI as noted above 7. Acute on chronic diastolic/systolic CHF: now appears compensated 8. AMY on CKD3: stable 9. Anemia: Hgb 8 stable., fracture contributing with Fe deficiency. per PCP 10. Coagulopathy: resolved 11. Hx of cardiomyopathy: Recent EF at 50% Recommendations 1. Continue with amiodarone. May need to reduce to 1 tab daily, will defer to her bench inspector, Dr. Guerrero 2. Lasix therapy 3. Unless there is obvious bleed particularly GI bleed, I would recommend continuing her eliquis and may place on lower dose at least for another 2 weeks then reevaluate given her recent CVN 4. Consider [facility] outpt referral. 5. Continue statin and coreg. 6. Agree with SNU JAILYN RUBIO MD 02/01/19 2213: CARDIO Progress Notes Assessment Assessment Patient seen and examined. Agree with LOGISTICS CLERK's assessment and plan. PAF with AV paced rhythm on amiodarone Agree with [facility] referral as outpatient CAD stable Possible SNU placement JULIANNA LIRA APRN Feb 01, 2019 14:37 JAILYN RUBIO MD Feb 01, 2019 22:13
--- NOTE | 2019-02-01 14:42 | NUR ---
SS following up with discharge planning. SS received notification from [facility] stating that they are still awaiting insurance authorization for nursing home unit at this time. SS will continue to follow for discharge planning.
[2019-02-01 14:53] LABS: FECAL OB PT POSITIVE (NEG)
[2019-02-01 15:00] VITALS: BP 147/62
--- NOTE | 2019-02-01 15:59 | NUR ---
Notified Dr. Hall about positve occult blood stool result from lab at 1530. Placed a GI consult order and stopped her Discharge orders per Dr. Hall. Dr. Hall asked me to notify Zack Olmstead, cadiology MAINTENANCE AND OPERATIONS SUPERVISOR. Zack Olmstead gave me a verbal order to stop the Eliquis medication on patient.
[2019-02-01] MEDS: ACETAMINOPHEN 500 MG TABLET PO PRN (17:08)
[2019-02-01 19:10] VITALS: BP 132/50
[2019-02-01] MEDS: VITS A & D/LANOLIN TOPICAL OINTMENT 42GM TUBE. TP SCH (21:00)
[2019-02-01] MEDS: ATORVASTATIN CALCIUM 10 MG TABLET. PO SCH (21:16)
[2019-02-01] MEDS: LORazepam 0.5 MG TABLET PO PRN (21:16)
[2019-02-01 23:10] VITALS: BP 109/45
[2019-02-02 03:15] VITALS: BP 109/44
[2019-02-02 07:00] VITALS: BP 128/45
[2019-02-02] MEDS: VITS A & D/LANOLIN TOPICAL OINTMENT 42GM TUBE. TP SCH ×2 (09:00→20:53)
[2019-02-02] MEDS: LACTOBACILLUS RHAMNOSUS GG 1 CAPSULE. PO SCH ×2 (09:10→20:54)
[2019-02-02] MEDS: CETIRIZINE HCL 10 MG TABLET. PO SCH (09:11)
[2019-02-02] MEDS: AMIODARONE HCL 200 MG TABLET. PO SCH ×2 (09:11→20:52)
[2019-02-02] MEDS: oxyCODONE/APAP 5/325 1 TAB TABLET PO PRN ×2 (09:11→18:46)
[2019-02-02] MEDS: CHOLECALCIFEROL (VITAMIN D3) 1,000 UNIT TABLET PO SCH (09:11)
[2019-02-02] MEDS: MULTIVITAMIN with MINERAL TABLET. PO SCH (09:12)
[2019-02-02] MEDS: ASCORBIC ACID 500 MG TABLET PO SCH ×2 (09:12→20:52)
[2019-02-02] MEDS: CARVEDILOL 6.25 MG TABLET. PO SCH ×3 (09:12→18:45)
[2019-02-02] MEDS: FUROSEMIDE 40 MG TABLET. PO SCH (09:12)
[2019-02-02] MEDS: PANTOPRAZOLE 40 MG TABLET.DR. PO SCH (09:12)
[2019-02-02] MEDS: BRIMONIDINE 0.2% OPHTH SOLUTION 5ML BOTTLE. OU SCH ×2 (09:13→20:52)
[2019-02-02] MEDS: DICLOFENAC SODIUM 1% TOPICAL GEL 100GM TUBE. TP SCH ×3 (09:15→20:53)
[2019-02-02 11:00] VITALS: BP 135/53
--- NOTE | 2019-02-02 11:40 | PDOC2 ---
GI CONSULT HPI: HPI: 83 y/o female transferred here from [facility] after admitted there with h/o falls and multiple fractures. Anemia noted and stool heme positive. We were asked to see. Seen before in July 2017 for similar issues. Has h/o RIGO dating back to at least 2017 here. Denies overt bleeding, diarrhea or constipation. Believes she had a colonoscopy in the past, though timing, location and any findings not clearly recalled. Had a Cologuard a few years ago she assumes was negative as no one called her about it. Is on AC for a fib. Wt/appetite OK. H/o diverticulosis. H/o gerd on treatment. Jon dysphagia. No PUD, GB, liver or pancreatic history. Never smoked, but exposed in home as did. Remotely drank occasionally. Recalls no prior EGD. When last seen, outpatient evaluation recommended; did not occur. PMH: PMH: Afib, CAD, CHF, HTN, HLP, cardiomyopathy, sick sinus syndrome,OA, OP, CKD, chronic cystitis. S/p bilateral CTR's, bilateral THR's, ORIF right elbow fracture, PMMI, cystoscopy. FH: Family History: No pertinent hx Social History: Smoke: No ALCOHOL: none Drugs: None ROS: GEN: Denies fevers, chills, sweats HEENT: Denies blurred vision, sore throat CV: Denies chest pain RESP: Denies shortness of air, cough GI: Per HPI : Denies hematuria, dysuria ENDO: Denies weight changes NEURO: Denies confusion, dizziness MSK: Denies weakness, swelling SKIN: Denies jaundice, pruritus Vitals: Vitals: Vital Signs Date Time Temp Pulse Resp B/P (MAP) Pulse Ox O2 Delivery O2 Flow Rate FiO2 02/02/19 09:12 60 128/45 02/02/19 09:11 20 Nasal Cannula 2.0 02/02/19 07:00 98.0 90 98.0 Labs: Labs: Laboratory Tests Test 02/01/19 14:00 Stool Occult Blood Positive (NEG) Anemic, normal indices, abnormal iron studies probably with a component of ACD. Allergies: Coded Allergies: Sulfa (Sulfonamide Antibiotics) (Verified Allergy, Intermediate, Hives, 06/20/17) codeine (Verified Allergy, Intermediate, Hives, 06/20/17) metaxalone (Verified Allergy, Intermediate, Hives, 06/20/17) nitrofurantoin (Verified Allergy, Intermediate, Rash, 06/20/17) phenazopyridine (Verified Allergy, Intermediate, 06/20/17) Medications: Current Medications Medications (Trade) Dose Ordered Sig/Juan Route PRN Reason Start Time Stop Time Status Last Admin Dose Admin Info (Anti-Coagulation Monitoring By Pharmacy) 1 each PRN DAILY PRN MC SEE COMMENTS 02/01/19 12:45 02/01/19 12:43 Vitamin A/Vitamin D (Vitamin A & D Ointment) 1 gerry BID TP 02/01/19 21:00 02/02/19 09:00 Lorazepam (Ativan) 0.5 mg PRN QHS PRN PO ANXIETY / AGITATION 02/01/19 18:45 02/01/19 21:16 PE: GEN: NAD HEENT: Atraumatic, PERRLA LUNGS: CTAB HEART: RRR currently, no murmurs, pacemaker left infraclavicular area ABD: NABS, S/ND/NT, no masses EXTREMITY: No edema SKIN: No rashes, no jaundice NEURO/PSYCH: A & O 3 A/P: A/P: IMP: Chronic RIGO, largely unchanged over last few years. If history can be believed, not high risk of malignancy. Typical PUD not likely with chronic PPI use. History of GERD. Diverticulosis. REC: Continue address orthopedic issues. Monitor for overt bleeding. Would probably benefit from chronic po iron to some degree. Could consider outpatient evaluation at some point. Continue PPI. Thanks. VIANCA ANNE MD Feb 02, 2019 11:40
[2019-02-02 15:00] VITALS: BP 141/53
[2019-02-02] MEDS: FERROUS SULFATE 325 MG TABLET. PO SCH ×2 (17:45→18:45)
[2019-02-02 19:00] VITALS: BP 117/57
--- NOTE | 2019-02-02 19:06 | PN ---
DATE: 02/02/2019 SUBJECTIVE: The patient is sitting comfortably in her recliner, in no apparent distress. She stated that she has slept very well last night. Denied any chest pain or shortness of breath. Her stools for occult blood were positive yesterday and we did consult the Gastroenterology team for evaluation and treatment. PHYSICAL EXAMINATION: GENERAL: On examining her, she looked well and was clearly in no apparent respiratory distress. She was pale. No jaundice, cyanosis or thyromegaly. No jugular venous distention. No limb edema. VITAL SIGNS: Her heart rate was 60, blood pressure was 128/45, temperature was 98, respiratory rate was 20, and oxygen saturation was 96% on 2 liters of oxygen. Her intake over the last 24 hours was 1300, output was 1400. HEAD, EYES, EARS, NOSE AND THROAT: Showed normocephalic, atraumatic. NECK: Supple. HEART: Showed normal first and second heart sounds. No gallop, rub or murmur. CHEST: Clear to auscultation. No crepitation or rhonchi. ABDOMEN: Distended, soft, nontender. NEUROLOGIC: She is awake, alert, responding appropriately. All cranial nerves intact. She moves extremities without difficulty. She ambulates with a walker. LABORATORY DATA: As of yesterday, her serum sodium was 135, potassium 3.8, chloride 99, bicarbonate 27, anion gap of 9, BUN 43, creatinine 1.8, and estimated GFR was 27 mL per minute. Her glucose was 88 and calcium was 8.4. As of yesterday, her white cell count was 8400, hemoglobin 8, hematocrit 23.9, MCV 99 and platelet count 233,000. Her stool for occult blood was positive. ASSESSMENT: 1. Traumatic fall with sacral fracture, status post bilateral sacroplasty. 2. The patient has also left acetabular fracture as well as left shoulder avascular necrosis. I did speak with Dr. Viera and did not recommend any surgical intervention. 3. Paroxysmal atrial fibrillation. She underwent cardioversion recently on 01/17/2019. She is currently on Eliquis and amiodarone 4. Hypertension, well controlled. 5. Hyperlipidemia. 6. Coronary artery disease, clinically stable. 7. Acute on chronic diastolic and systolic congestive heart failure. 8. Acute on chronic kidney injury, stable. 9. Anemia. The patient is on Eliquis. Her stool is positive for occult blood. She definitely has large amount of blood over the last few days, coagulopathy, and history of cardiomyopathy, recent ejection fraction was at 50%. PLAN: We have consulted the Gastroenterology team as she probably needs upper GI endoscopy and make a decision to hold her Eliquis. TOSHA CHANEY MD DR: MC/marie JOB#: [id number] / [id number]
[2019-02-02] MEDS: LORazepam 0.5 MG TABLET PO PRN (20:52)
[2019-02-02] MEDS: ATORVASTATIN CALCIUM 10 MG TABLET. PO SCH (20:52)
[2019-02-02 23:00] VITALS: BP 125/45
[2019-02-03] VITALS (7 sets, daily range): BP systolic 98–149; BP diastolic 29–63
[2019-02-03] MEDS: oxyCODONE/APAP 5/325 1 TAB TABLET PO PRN ×3 (00:15→17:37)
[2019-02-03] MEDS: HYDROcodone/APAP 5/325MG 1 TAB TABLET PO PRN ×2 (02:41→20:33)
[2019-02-03 04:56] LABS: HEMATOCRIT 21.9 % (36.0-47.0); HEMOGLOBIN 7.3 g/dL (12.0-15.5); RED BLOOD COUNT 2.23 x10^6/uL (3.50-5.40); RED CELL DISTRIBUTION WIDTH 16.5 % (11.5-14.5); WHITE BLOOD COUNT 6.1 x10^3/uL (4.0-11.0)
[2019-02-03 05:45] LABS: CALCIUM 8.4 mg/dL (8.5-10.1); CREATININE 1.7 mg/dL (0.6-1.0); GFR 28.6; POTASSIUM 4.1 mmol/L (3.5-5.1)
[2019-02-03] MEDS: PANTOPRAZOLE 40 MG TABLET.DR. PO SCH (08:16)
[2019-02-03] MEDS: MULTIVITAMIN with MINERAL TABLET. PO SCH (08:17)
[2019-02-03] MEDS: FUROSEMIDE 40 MG TABLET. PO SCH (08:17)
[2019-02-03] MEDS: AMIODARONE HCL 200 MG TABLET. PO SCH ×2 (08:17→20:32)
[2019-02-03] MEDS: CHOLECALCIFEROL (VITAMIN D3) 1,000 UNIT TABLET PO SCH (08:18)
[2019-02-03] MEDS: FERROUS SULFATE 325 MG TABLET. PO SCH ×2 (08:18→17:37)
[2019-02-03] MEDS: CETIRIZINE HCL 10 MG TABLET. PO SCH (08:18)
[2019-02-03] MEDS: CARVEDILOL 6.25 MG TABLET. PO SCH ×2 (08:18→17:38)
[2019-02-03] MEDS: ASCORBIC ACID 500 MG TABLET PO SCH ×2 (08:18→20:31)
[2019-02-03] MEDS: VITS A & D/LANOLIN TOPICAL OINTMENT 42GM TUBE. TP SCH ×2 (08:19→20:33)
[2019-02-03] MEDS: LACTOBACILLUS RHAMNOSUS GG 1 CAPSULE. PO SCH ×2 (08:19→20:31)
[2019-02-03] MEDS: BRIMONIDINE 0.2% OPHTH SOLUTION 5ML BOTTLE. OU SCH ×2 (08:19→20:31)
[2019-02-03] MEDS: DICLOFENAC SODIUM 1% TOPICAL GEL 100GM TUBE. TP SCH ×3 (08:20→20:32)
--- NOTE | 2019-02-03 12:12 | PN ---
DATE: 02/03/2019 SUBJECTIVE: The patient is sitting comfortably in her chair, working with physical therapist. She was seen by Dr. Martin who recommended outpatient colonoscopy and to put her on chronic iron supplementation. PHYSICAL EXAMINATION: GENERAL: When I examined her this morning, she looked pale, but no jaundice, cyanosis or thyromegaly. No jugular venous distention. No limb edema. VITAL SIGNS: Her heart rate was 60, blood pressure 149/52, temperature was 98.2, respiratory rate was 18 and oxygen saturation was 94%. HEAD, EYES, EARS, NOSE AND THROAT: Showed normocephalic, atraumatic. NECK: Supple. HEART: Showed normal first and second heart sounds. No gallop, rub or murmur. CHEST: Clear to auscultation. No crepitation or rhonchi. ABDOMEN: Distended, soft, nontender. No guarding or rigidity. No organomegaly. All hernial orifice intact. Bowel sounds normal. NEUROLOGIC: She was awake, alert, responding appropriately. All cranial nerves intact. She moves extremities without difficulty. Her intake was 900, output was 620. LABORATORY DATA: As of this morning; her white cell count was 6000, hemoglobin 7.3, hematocrit 22, MCV 98 and platelet count 218,000. Her chemistry showed a serum sodium 137, potassium 4.1, chloride 101, bicarbonate 29, anion gap of 7, BUN 44, creatinine 1.7, estimated GFR was 28 mL per minute. Her glucose was 83, calcium was 8.4. Serum iron, TIBC, iron saturation is low, serum ferritin is high at ____. ASSESSMENT: 1. Traumatic fall with sacral fracture, status post bilateral sacroplasty. 2. The patient also has left acetabular fracture as well as left shoulder avascular necrosis. We did consult Dr. Viera, who did not recommend any surgical intervention. 3. Paroxysmal atrial fibrillation, for which she underwent cardioversion recently. She is currently on Eliquis and amiodarone. 4. Hypertension, well controlled. 5. Hyperlipidemia. 6. Coronary artery disease, clinically stable, chest pain free. 7. Acute on chronic diastolic congestive heart failure. 8. Acute on chronic kidney injury, stable. 9. Anemia. The patient is on Eliquis. Her stool was positive for occult blood, for which we did consult Dr. Martin who basically recommended to continue with iron supplementation. PLAN: My plan is to discharge her tomorrow to [facility] to continue the process of rehabilitation there and we will arrange for her to have an upper and lower GI endoscopy. TOSHA CHANEY MD DR: MC/marie JOB#: [id number] / [id number]
--- NOTE | 2019-02-03 12:35 | PDOC ---
G I PROGRESS NOTE Subjective Asleep, not awakened. Objective No GI issues reported. Physical Exam No PE. Review of Relevant I have reviewed the following items elie (where applicable) has been applied. Labs Laboratory Tests Test 02/01/19 14:00 02/03/19 03:15 Stool Occult Blood Positive (NEG) White Blood Count 6.1 x10^3/uL (4.0-11.0) Red Blood Count 2.23 x10^6/uL (3.50-5.40) Hemoglobin 7.3 g/dL (12.0-15.5) Hematocrit 21.9 % (36.0-47.0) Mean Corpuscular Volume 98 fL (79-100) Mean Corpuscular Hemoglobin 33 pg (25-35) Mean Corpuscular Hemoglobin Concent 33 g/dL (31-37) Red Cell Distribution Width 16.5 % (11.5-14.5) Platelet Count 218 x10^3/uL (140-400) Sodium Level 137 mmol/L (136-145) Potassium Level 4.1 mmol/L (3.5-5.1) Chloride Level 101 mmol/L (98-107) Carbon Dioxide Level 29 mmol/L (21-32) Anion Gap 7 (6-14) Blood Urea Nitrogen 44 mg/dL (7-20) Creatinine 1.7 mg/dL (0.6-1.0) Estimated GFR (Cockcroft-Gault) 28.6 Glucose Level 83 mg/dL (70-99) Calcium Level 8.4 mg/dL (8.5-10.1) Laboratory Tests Test 02/03/19 03:15 White Blood Count 6.1 x10^3/uL (4.0-11.0) Red Blood Count 2.23 x10^6/uL (3.50-5.40) Hemoglobin 7.3 g/dL (12.0-15.5) Hematocrit 21.9 % (36.0-47.0) Mean Corpuscular Volume 98 fL (79-100) Mean Corpuscular Hemoglobin 33 pg (25-35) Mean Corpuscular Hemoglobin Concent 33 g/dL (31-37) Red Cell Distribution Width 16.5 % (11.5-14.5) Platelet Count 218 x10^3/uL (140-400) Sodium Level 137 mmol/L (136-145) Potassium Level 4.1 mmol/L (3.5-5.1) Chloride Level 101 mmol/L (98-107) Carbon Dioxide Level 29 mmol/L (21-32) Anion Gap 7 (6-14) Blood Urea Nitrogen 44 mg/dL (7-20) Creatinine 1.7 mg/dL (0.6-1.0) Estimated GFR (Cockcroft-Gault) 28.6 Glucose Level 83 mg/dL (70-99) Calcium Level 8.4 mg/dL (8.5-10.1) Vitals/I & O Vital Sign - Last 24 Hours 02/02/19 02/02/19 02/02/19 02/02/19 15:00 17:44 18:46 19:00 Temp 98.5 97.7 98.5 97.7 Pulse 61 61 59 Resp 18 20 18 B/P (MAP) 141/53 (82) 141/53 117/57 (77) Pulse Ox 98 O2 Delivery Nasal Cannula Nasal Cannula Nasal Cannula O2 Flow Rate 2.0 2.0 2.0 02/02/19 02/02/19 02/02/19 02/03/19 20:30 20:52 23:00 01:31 Temp 98.1 98.1 Pulse 62 60 Resp 18 B/P (MAP) 125/45 (71) Pulse Ox 95 95 O2 Delivery Nasal Cannula Nasal Cannula Nasal Cannula O2 Flow Rate 2.0 2.0 2.0 02/03/19 02/03/19 02/03/19 02/03/19 03:00 07:00 08:00 08:17 Temp 98.2 98.2 98.2 98.2 Pulse 60 60 60 Resp 18 18 B/P (MAP) 128/52 (77) 149/52 (84) 128/52 Pulse Ox 94 94 O2 Delivery Nasal Cannula Room Air Nasal Cannula O2 Flow Rate 6.0 2.0 02/03/19 02/03/19 08:18 11:00 Temp 97.8 97.8 Pulse 60 55 Resp 16 B/P (MAP) 128/52 120/41 (67) Pulse Ox 94 O2 Delivery Room Air Intake and Output 02/02/19 02/02/19 02/03/19 15:00 23:00 07:00 Intake Total 237 ml 240 ml Output Total 150 ml 1050 ml 900 ml Balance -150 ml -813 ml -660 ml Problem List Problems Medical Problems: (1) Acute kidney injury superimposed on CKD Status: Chronic (2) Acute on chronic systolic and diastolic heart failure, NYHA class 1 Status: Chronic (3) Afib Status: Chronic (4) CAD (coronary artery disease) Status: Chronic (5) Cardiomyopathy Status: Chronic (6) Coagulopathy Status: Chronic (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 Plan of Care Note Consider endoscopic evaluation; now is probably not the best time. Not good surgical candidate regardless. VIANCA ANNE MD Feb 03, 2019 12:35
[2019-02-03] MEDS: LORazepam 0.5 MG TABLET PO PRN (20:32)
[2019-02-03] MEDS: ATORVASTATIN CALCIUM 10 MG TABLET. PO SCH (20:33)
[2019-02-04 03:00] VITALS: BP 120/87
[2019-02-04] MEDS: oxyCODONE/APAP 5/325 1 TAB TABLET PO PRN (03:28)
[2019-02-04] MEDS: ONDANSETRON PF 4 MG/2 ML VIAL. IVP PRN (06:21)
[2019-02-04 07:00] VITALS: BP 138/56
[2019-02-04] MEDS: PANTOPRAZOLE 40 MG TABLET.DR. PO SCH (09:07)
[2019-02-04] MEDS: MULTIVITAMIN with MINERAL TABLET. PO SCH (09:07)
[2019-02-04] MEDS: ASCORBIC ACID 500 MG TABLET PO SCH ×2 (09:07→20:23)
[2019-02-04] MEDS: LACTOBACILLUS RHAMNOSUS GG 1 CAPSULE. PO SCH ×2 (09:07→20:23)
[2019-02-04] MEDS: CHOLECALCIFEROL (VITAMIN D3) 1,000 UNIT TABLET PO SCH (09:07)
[2019-02-04] MEDS: FERROUS SULFATE 325 MG TABLET. PO SCH ×2 (09:08→18:00)
[2019-02-04] MEDS: CARVEDILOL 6.25 MG TABLET. PO SCH ×2 (09:08→18:00)
[2019-02-04] MEDS: FUROSEMIDE 40 MG TABLET. PO SCH (09:08)
[2019-02-04] MEDS: CETIRIZINE HCL 10 MG TABLET. PO SCH (09:08)
[2019-02-04] MEDS: DICLOFENAC SODIUM 1% TOPICAL GEL 100GM TUBE. TP SCH ×3 (09:09→20:24)
[2019-02-04] MEDS: AMIODARONE HCL 200 MG TABLET. PO SCH ×2 (09:09→20:23)
[2019-02-04] MEDS: BRIMONIDINE 0.2% OPHTH SOLUTION 5ML BOTTLE. OU SCH ×2 (09:35→20:22)
[2019-02-04] MEDS: VITS A & D/LANOLIN TOPICAL OINTMENT 42GM TUBE. TP SCH ×2 (09:36→20:24)
--- NOTE | 2019-02-04 09:58 | SNU/HH DC ---
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 HILL AFTER DISCHARGE: Cardiac WOUND/INCISION CARE: Ice to area for comfort, Keep wound/cast CDI, Change dressing, Reinforce dressing PRN CHECKS AFTER DISCHARGE: CHECKS AFTER DISCHARGE: Check blood press - daily TREATMENT/EQUIPMENT ORDERS: ADAPTIVE EQUIPMENT NEEDED: None Physical Therapy For: Evalulation/Treatment Occupational Therapy For: Evaluation/Treatment DISCHARGE MEDICATIONS: Home Meds Active Scripts Amiodarone Hcl (AMIODARONE HCL) 200 Mg Tablet, 1 TAB PO BID for afib for 30 Days, #60 TAB 1 Refill Prov:TOSHA CHANEY MD 02/01/19 Furosemide (FUROSEMIDE) 40 Mg Tablet, 1 TAB PO DAILY for chf for 30 Days, #30 TAB 5 Refills Prov:TOSHA CHANEY MD 02/01/19 Apixaban (ELIQUIS) 2.5 Mg Tablet, 2.5 MG PO BID for afib for 30 Days, #60 TAB Prov:TOSHA CHANEY MD 02/01/19 Oxycodone Hcl/Acetaminophen (OXYCODONE-ACETAMINOPHEN 5-325) 1 Each Tablet, 1 TAB PO PRN Q4HRS PRN for PAIN MOD TO SEV, #45 TAB Prov:CHAYO SRIVASTAVA MD 06/23/17 Reported Medications Estrogens, Conjugated (PREMARIN) 0.625 Mg Tablet, 1 TAB PO PRN PRN for ITCHING, #30 TAB 11 Refills 12/16/16 Flecainide Acetate (FLECAINIDE ACETATE) 100 Mg Tablet, 75 MG PO BID, TAB 12/16/16 Clotrimazole/Betamethasone Dip (CLOTRIMAZOLE-BETAMETHASONE CRM) 15 Gm Cream..g., 1 MIKE TP PRN BID PRN for ITCHING, #30 GM 1 Refill 12/16/16 Brimonidine Tartrate/Timolol (COMBIGAN EYE DROPS) 5 Ml Drops, 0.15 ML EACHEYE BID, % 08/03/16 Brimonidine Tartrate (BRIMONIDINE TARTRATE) 5 Ml Drops, 5 ML OP, DROP 08/03/16 Pravastatin Sodium (PRAVASTATIN SODIUM) 40 Mg Tablet, 2 TAB PO QHS, #90 TAB 1 Refill 08/03/16 Omeprazole (OMEPRAZOLE) 40 Mg Capsule.dr, 2 CAP PO DAILY, #30 CAP 3 Refills 08/03/16 Glucosamine/D3/Boswellia Cher (OSTEO BI-FLEX CAPLET) 1 Each Tablet, 200-250 MG PO BID, TAB 08/03/16 Cholecalciferol (Vitamin D3) (D3-2000) 2,000 Unit Capsule, 2000 UNIT PO DAILY, CAP 08/03/16 Discontinued Reported Medications Amiloride Hcl (AMILORIDE HCL) 5 Mg Tablet, 5 MG PO DAILY, TAB 06/19/17 Metoprolol Succinate (METOPROLOL SUCCINATE ( XL )) 25 Mg Tab.er.24h, 2 TAB PO DAILY, #30 TAB 5 Refills 12/16/16 Losartan Potassium (LOSARTAN POTASSIUM) 50 Mg Tablet, 50 MG PO DAILY, TAB 12/16/16 Apixaban (ELIQUIS) 5 Mg Tablet, 5 MG PO BID, TAB 08/03/16 Discontinued Scripts Ciprofloxacin Hcl (CIPRO) 500 Mg Tablet, 1 TAB PO BID, #14 TAB Prov:YOEL RAIN MD 08/04/16 TOSHA CHANEY MD Feb 04, 2019 09:58
[2019-02-04] MEDS: ACETAMINOPHEN 500 MG TABLET PO PRN ×3 (10:37→20:23)
--- NOTE | 2019-02-04 10:42 | NUR ---
GWENDOLYN following for discharge planning. Pt's insurance denied for pt to go to SNU. Dr. Hall agreeable to do a peer to peer. Number provided to Dr. Hall. GWENDOLYN will continue to follow.
[2019-02-04 11:00] VITALS: BP 131/50
--- NOTE | 2019-02-04 12:43 | PDOC ---
CARDIO Progress Notes Date and Time Date of Service 02/04/2019 Time of Evaluation 1210 Subjective Subjective: No Chest Pain, No shortness of breath, No Palpitations Vitals Vitals Vital Signs Date Time Temp Pulse Resp B/P (MAP) Pulse Ox O2 Delivery O2 Flow Rate FiO2 02/04/19 09:09 62 138/56 02/04/19 08:00 Nasal Cannula 2.0 02/04/19 07:00 98.2 18 97 98.2 Weight Weight [ ] Input and Output Intake and Output Intake and Output 02/04/19 07:00 Intake Total 720 ml Output Total 500 ml Balance 220 ml Intake Oral 720 ml Output Urine Total 500 ml # Voids 3 Laboratory Labs Laboratory Tests Test 02/04/19 03:30 Hemoglobin 8.0 g/dL (12.0-15.5) Hematocrit 24.0 % (36.0-47.0) Physical Exam HEENT: Neck Supple W Full Motion Chest: Symmetric LUNGS: Clear to Auscultation Heart: S1S2, RRR Abdomen: Soft N/T Extremities: Other (2+ bilateral LE pitting edema) Neurology: alert, oriented, follow commands Assessment Assessment 1. 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 S/P sacroplasty. Ortho has been notified per PCP, no surgical plans. 2. PAFIB: AV pacing per recent EKG. Recent CVN 01/17/2019 on eliquis and amiodarone 3. SSS: GLOST TILE SHADER-P in situ. Paced rhythm. 0 AFIB burden since CVN, normal functioning device 4. HTN: controlled 5. HLP 6. CAD: clinically stable. Recent MPI as noted above 7. Acute on chronic diastolic/systolic CHF: now appears compensated 8. AMY on CKD3: stable 9. Anemia: Hgb 8 stable hemoccult + 10. Coagulopathy: resolved 11. Hx of cardiomyopathy: Recent EF at 50% Recommendations 1. Continue with amiodarone. May need to reduce to 1 tab daily, will defer to her cloth washer operator, Dr. Guerrero 2. Lasix therapy 3. Pt received 2 weeks worth of eliquis post CVN, Her AFIB burden has been 0% with amiodarone. Given her anemia and likely GI bleed with +hemoccult, will stop eliquis and will place on ASA for now for stroke prevention Discussed this with pt in regards to risks and benefits. 4. Consider [facility] outpt referral. 5. Continue statin and coreg. 6. Agree with JULIANNA GUERRERO INDEPENDENT VIDEO PRODUCER Feb 04, 2019 12:43
[2019-02-04 15:00] VITALS: BP 129/49
--- NOTE | 2019-02-04 15:11 | PDOC ---
G I PROGRESS NOTE Subjective Sleeping. Did not awaken. Objective Others' notes reviewed. Physical Exam No PE. Review of Relevant I have reviewed the following items elie (where applicable) has been applied. Labs Laboratory Tests Test 02/03/19 03:15 02/04/19 03:30 White Blood Count 6.1 x10^3/uL (4.0-11.0) Red Blood Count 2.23 x10^6/uL (3.50-5.40) Hemoglobin 7.3 g/dL (12.0-15.5) 8.0 g/dL (12.0-15.5) Hematocrit 21.9 % (36.0-47.0) 24.0 % (36.0-47.0) Mean Corpuscular Volume 98 fL (79-100) Mean Corpuscular Hemoglobin 33 pg (25-35) Mean Corpuscular Hemoglobin Concent 33 g/dL (31-37) Red Cell Distribution Width 16.5 % (11.5-14.5) Platelet Count 218 x10^3/uL (140-400) Sodium Level 137 mmol/L (136-145) Potassium Level 4.1 mmol/L (3.5-5.1) Chloride Level 101 mmol/L (98-107) Carbon Dioxide Level 29 mmol/L (21-32) Anion Gap 7 (6-14) Blood Urea Nitrogen 44 mg/dL (7-20) Creatinine 1.7 mg/dL (0.6-1.0) Estimated GFR (Cockcroft-Gault) 28.6 Glucose Level 83 mg/dL (70-99) Calcium Level 8.4 mg/dL (8.5-10.1) Laboratory Tests Test 02/04/19 03:30 Hemoglobin 8.0 g/dL (12.0-15.5) Hematocrit 24.0 % (36.0-47.0) Hemoglobin low/stable. Vitals/I & O Vital Sign - Last 24 Hours 02/03/19 02/03/19 02/03/19 02/03/19 17:37 17:38 18:37 19:00 Temp 98.9 98.9 Pulse 62 58 Resp 20 20 18 B/P (MAP) 105/47 98/29 (52) Pulse Ox 92 O2 Delivery Room Air Room Air Room Air 11/3/19 02/03/19 02/03/19 02/03/19 19:45 19:45 20:30 20:32 Pulse 65 B/P (MAP) 140/60 (86) 141/63 (89) 140/90 O2 Delivery Nasal Cannula O2 Flow Rate 2.0 02/03/19 02/03/19 02/04/19 02/04/19 21:52 23:00 03:00 07:00 Temp 98.0 98.0 98.2 98.0 98.0 98.2 Pulse 60 59 62 Resp 18 18 18 B/P (MAP) 118/63 (81) 120/87 (98) 138/56 (83) Pulse Ox 92 93 90 97 O2 Delivery Nasal Cannula Room Air Room Air Nasal Cannula O2 Flow Rate 2.0 2.0 02/04/19 02/04/19 02/04/19 02/04/19 08:00 09:08 09:09 11:00 Temp 97.5 97.5 Pulse 62 62 60 Resp 18 B/P (MAP) 138/56 138/56 131/50 (77) Pulse Ox 100 O2 Delivery Nasal Cannula Nasal Cannula O2 Flow Rate 2.0 2.0 Intake and Output 02/03/19 02/03/19 02/04/19 15:00 23:00 07:00 Intake Total 240 ml 480 ml Output Total 500 ml Balance -260 ml 480 ml Problem List Problems Medical Problems: (1) Acute kidney injury superimposed on CKD Status: Chronic (2) Acute on chronic systolic and diastolic heart failure, NYHA class 1 Status: Chronic (3) Afib Status: Chronic (4) CAD (coronary artery disease) Status: Chronic (5) Cardiomyopathy Status: Chronic (6) Coagulopathy Status: Chronic (7) HLP (hyperkeratosis lenticularis perstans) Status: Chronic (8) HTN (hypertension) Status: Chronic (9) Sacral fracture Status: Acute (10) SSS (sick sinus syndrome) Status: Chronic Assessment Chronic RIGO; malignancy doubtful w/o progressive issues. Plan of Care: Continue current Tx, Mgmt VIANCA ANNE MD Feb 04, 2019 15:11
[2019-02-04] MEDS: ASPIRIN ENTERIC COATED 81 MG TABLET.DR. PO SCH (15:23)
[2019-02-04 19:00] VITALS: BP 143/58
[2019-02-04] MEDS: ATORVASTATIN CALCIUM 10 MG TABLET. PO SCH (20:23)
[2019-02-04 22:57] VITALS: BP 135/49
[2019-02-05] MEDS: LORazepam 0.5 MG TABLET PO PRN (01:51)
[2019-02-05] MEDS: oxyCODONE/APAP 5/325 1 TAB TABLET PO PRN ×2 (01:52→17:13)
[2019-02-05] MEDS: ONDANSETRON PF 4 MG/2 ML VIAL. IVP PRN (01:52)
[2019-02-05 03:00] VITALS: BP 118/67
[2019-02-05 07:00] VITALS: BP 143/52
[2019-02-05] MEDS: LACTOBACILLUS RHAMNOSUS GG 1 CAPSULE. PO SCH (08:08)
[2019-02-05] MEDS: CETIRIZINE HCL 10 MG TABLET. PO SCH (08:08)
[2019-02-05] MEDS: FUROSEMIDE 40 MG TABLET. PO SCH (08:08)
[2019-02-05] MEDS: AMIODARONE HCL 200 MG TABLET. PO SCH (08:09)
[2019-02-05] MEDS: PANTOPRAZOLE 40 MG TABLET.DR. PO SCH (08:09)
[2019-02-05] MEDS: CHOLECALCIFEROL (VITAMIN D3) 1,000 UNIT TABLET PO SCH (08:09)
[2019-02-05] MEDS: ASCORBIC ACID 500 MG TABLET PO SCH (08:09)
[2019-02-05] MEDS: MULTIVITAMIN with MINERAL TABLET. PO SCH (08:10)
[2019-02-05] MEDS: CARVEDILOL 6.25 MG TABLET. PO SCH (08:10)
[2019-02-05] MEDS: FERROUS SULFATE 325 MG TABLET. PO SCH (08:10)
[2019-02-05] MEDS: ASPIRIN ENTERIC COATED 81 MG TABLET.DR. PO SCH (08:12)
[2019-02-05] MEDS: VITS A & D/LANOLIN TOPICAL OINTMENT 42GM TUBE. TP SCH (09:00)
[2019-02-05] MEDS: BRIMONIDINE 0.2% OPHTH SOLUTION 5ML BOTTLE. OU SCH (09:00)
--- NOTE | 2019-02-05 10:52 | PDOC ---
Subjective: Subjective: Some decreased appetite but no n/v, abd pain, diarrhea, constipation, or obvious bleeding. Notes she has bed sores that bleed, wonders if this contributed to +Hemoccult. Tells me three jokes. Objective: Objective: D/w nurse - ?Dc to [facility] today - no bleeding. On PPI, ASA (no plans to restart Eliquis), and iron BID. Vital Signs: Vital Signs Date Time Temp Pulse Resp B/P (MAP) Pulse Ox O2 Delivery O2 Flow Rate FiO2 02/05/19 08:10 61 118/67 02/05/19 07:00 97.9 18 100 Room Air 97.9 02/05/19 03:00 2.0 PE: GEN: NAD - sitting in chair LUNGS: CTAB HEART: RRR ABD: NABS, S/ND/NT NEURO/PSYCH: A & O 3, cheerful A/P: Fall s/p sacroplasty Chronic RIGO - stable H/o GERD and diverticulosis, A Fib, CAD -- DC per primary, continue iron. ARNULFO EAST Feb 05, 2019 10:52
[2019-02-05 11:00] VITALS: BP 119/40
--- NOTE | 2019-02-05 11:16 | NUR ---
GWENDOLYN following. Discussed with RN Peer to peer was not held due to not being able to reach the correct person. Pt will discharge home with [facility]. GWENDOLYN met with pt, pt was current with [employer] (ph: [phone], fax: [phone]) and would like them again. Per RN, pt is needing a 6 minute walk. GWENDOLYN will continue to follow to assist with oxygen referral if pt requiring o2 upon discharge. Addendum: 02/05/19 at 1439 by RONALD SNOW [facility] confirmed they were seeing pt, prior to this admission. GWENDOLYN faxed resumption of care orders for PT/O/RN. Pt had queried whether she could get a new walker because of hers not fitting in the bathroom. GWENDOLYN spoke with [employer] [facility], who will have their PT show pt different way of getting in the bathroom. GWENDOLYN still awaiting 6 minute walk. RN notified. Addendum: 02/05/19 at 1612 by RONALD SNOW GWENDLOYN following. Pt is requiring oxygen, GWENDOLYN faxed referral to [facility]. Luigi at [facility] is delivering a tank to pt's room this afternoon. [facility] notified. Pt can discharge home with [facility] and [facility] for oxygen needs. RN notified.
--- NOTE | 2019-02-05 11:18 | SNU/HH DC ---
DISCHARGE WITH HOME HEALTH DISCHARGE INFORMATION: Discharge Date: Feb 05, 2019 Final Diagnosis: Problems Medical Problems: (1) Acute kidney injury superimposed on CKD Status: Chronic (2) Acute on chronic systolic and diastolic heart failure, NYHA class 1 Status: Chronic (3) Afib Status: Chronic (4) CAD (coronary artery disease) Status: Chronic (5) Cardiomyopathy Status: Chronic (6) Coagulopathy Status: Chronic (7) HLP (hyperkeratosis lenticularis perstans) Status: Chronic (8) HTN (hypertension) Status: Chronic (9) Sacral fracture Status: Acute (10) SSS (sick sinus syndrome) Status: Chronic Condition on Discharge: Stable CODE STATUS: Code Status: Full HOME HEALTH: Face to Face: I certify this patient is under my care and that I, or a nurse practitioner or physician's entry level assistant manager working with me, had a face to face encounter that meets the physician face to face encounter requirements with this patient on 02/05/19 Medical Complications: Other RN For Eval/Treatment: Yes Physical Therapy For: Evalulation/Treatment Occupational Therapy For: Evaluation/Treatment Pt Meets Homebound Status: Unsteady balance w/ amb,, Frequent falls w/ injury POST DISCHARGE ORDERS: Activity Instructions for Disc: Activity as tolerated Bathing Instructions: Shower-keep dressing dry, No Tub Bath until see DIET AFTER DISCHARGE: Cardiac Wound/Incision Care: Ice to area for comfort, Keep wound/cast CDI, Change dressing, Reinforce dressing PRN CHECKS AFTER DISCHARGE: Checks after discharge: Check blood press - daily TREATMENT/EQUIPMENT ORDERS: Adaptive Equipment Issued: None CERTIFICATION STATEMENT: Certification Statement: Certification Statement: Based on the above finding, I certify that this patient is confined to the home and needs intermittent chcf care, physical therapy and/or speech therapy, or continues to need occupational therapy.~ This patient is under my care, and I have initiated the establishment of the plan of care.~ This patient will be followed by myself or a community physician who will periodically review the plan of care. Home Meds Active Scripts Amiodarone Hcl (AMIODARONE HCL) 200 Mg Tablet, 1 TAB PO BID for afib for 30 Days, #60 TAB 1 Refill Prov:TOSHA CHANEY MD 02/01/19 Furosemide (FUROSEMIDE) 40 Mg Tablet, 1 TAB PO DAILY for chf for 30 Days, #30 TAB 5 Refills Prov:TOSHA CHANEY MD 02/01/19 Apixaban (ELIQUIS) 2.5 Mg Tablet, 2.5 MG PO BID for afib for 30 Days, #60 TAB Prov:TOSHA CHANEY MD 02/01/19 Oxycodone Hcl/Acetaminophen (OXYCODONE-ACETAMINOPHEN 5-325) 1 Each Tablet, 1 TAB PO PRN Q4HRS PRN for PAIN MOD TO SEV, #45 TAB Prov:CHAYO SRIVASTAVA MD 06/23/17 Reported Medications Estrogens, Conjugated (PREMARIN) 0.625 Mg Tablet, 1 TAB PO PRN PRN for ITCHING, #30 TAB 11 Refills 12/16/16 Flecainide Acetate (FLECAINIDE ACETATE) 100 Mg Tablet, 75 MG PO BID, TAB 12/16/16 Clotrimazole/Betamethasone Dip (CLOTRIMAZOLE-BETAMETHASONE CRM) 15 Gm Cream..g., 1 MIKE TP PRN BID PRN for ITCHING, #30 GM 1 Refill 12/16/16 Brimonidine Tartrate/Timolol (COMBIGAN EYE DROPS) 5 Ml Drops, 0.15 ML EACHEYE BID, % 08/03/16 Brimonidine Tartrate (BRIMONIDINE TARTRATE) 5 Ml Drops, 5 ML OP, DROP 08/03/16 Pravastatin Sodium (PRAVASTATIN SODIUM) 40 Mg Tablet, 2 TAB PO QHS, #90 TAB 1 Refill 08/03/16 Omeprazole (OMEPRAZOLE) 40 Mg Capsule.dr, 2 CAP PO DAILY, #30 CAP 3 Refills 08/03/16 Glucosamine/D3/Boswellia Cher (OSTEO BI-FLEX CAPLET) 1 Each Tablet, 200-250 MG PO BID, TAB 08/03/16 Cholecalciferol (Vitamin D3) (D3-2000) 2,000 Unit Capsule, 2000 UNIT PO DAILY, CAP 08/03/16 Discontinued Reported Medications Amiloride Hcl (AMILORIDE HCL) 5 Mg Tablet, 5 MG PO DAILY, TAB 06/19/17 Metoprolol Succinate (METOPROLOL SUCCINATE ( XL )) 25 Mg Tab.er.24h, 2 TAB PO DAILY, #30 TAB 5 Refills 12/16/16 Losartan Potassium (LOSARTAN POTASSIUM) 50 Mg Tablet, 50 MG PO DAILY, TAB 12/16/16 Apixaban (ELIQUIS) 5 Mg Tablet, 5 MG PO BID, TAB 08/03/16 Discontinued Scripts Ciprofloxacin Hcl (CIPRO) 500 Mg Tablet, 1 TAB PO BID, #14 TAB Prov:YOEL RAIN MD 08/04/16 TOSHA CHANEY MD Feb 05, 2019 11:18
[2019-02-05] MEDS: HYDROcodone/APAP 5/325MG 1 TAB TABLET PO PRN (12:38)
[2019-02-05] MEDS: DICLOFENAC SODIUM 1% TOPICAL GEL 100GM TUBE. TP SCH ×2 (12:39→14:05)
--- NOTE | 2019-02-05 15:37 | NUR ---
Wound Care: Follow up for wounds to bilateral buttocks. wound unchanged from last visit, presenting as open red blisters. Applied A&D and left CRM CAMPAIGN MANAGER. Pt sitting in chair. No other open areas noted on head to toe inspection. Encouraged to change position to prevent further breakdown. Follow up 02/12/19
--- NOTE | 2019-02-05 16:52 | NUR ---
Discharge note: Pt dc'd by Dr Hall to go home with [facility] and O2 that was set up with [employer] by [employer] and [employer] delivered tank for car trip and I notified them that pt was on way home so they could deliver tank to home. present for education as well. 6Min walk revealed she needed O2 at 4l with activity and 2l n/c at rest. Pt education done on this as pt seemed reluctant to leave O2 on at all times. IV dc'd with tip intact. [employer] [employer] and robe sent home with pt. New script for pain med. CHF education done for monitoring intake and wt gain at home. Pt was already on home health and they were monitoring CHF. She stated that wounds on her sacral area were already being treated by Home health as well with A&D. Inc care explained and meds were reviewed. Pt was able to state back her medication schedule. Home by private vehicle. She will contact her artificial breast fabricator and update them on this admission. She will call to follow up with Dr Viera
--- NOTE | 2019-02-05 20:18 | DS ---
DATE OF DISCHARGE: 02/05/2019 HOSPITAL COURSE: The patient is an 83-year-old female patient who was transferred from [facility] where she presented with fall and a bone scan showed that she has bilateral sacral insufficiency fracture. She has also fracture of the left acetabulum and left shoulder avascular necrosis. She was seen in consultation by Dr. Rosa and we held her Eliquis and underwent bilateral sacroplasty successfully and Dr. Viera did not recommend any intervention to his left acetabular fracture and left shoulder avascular necrosis. The patient was seen also in consultation by the Cardiology team as well as Gastroenterology given her anemia. She has 1 stool positive for occult blood and Dr. Thiago Martin recommended doing outpatient colonoscopy and upper GI endoscopy and basically decision was made to discharge her home with home health to continue on her Eliquis. PHYSICAL EXAMINATION: GENERAL: When I examined her today, she was sitting comfortably in her chair, in no apparent respiratory distress. No pallor, jaundice, cyanosis, or thyromegaly. No jugular venous distention. Mild bilateral lower limb edema. VITAL SIGNS: Her heart rate was 63, blood pressure 143/52, temperature was 97.9, respiratory rate was 18, and oxygen saturation was 100% on 2 liters of oxygen. HEAD, EYES, EARS, NOSE AND THROAT: Showed normocephalic, atraumatic. NECK: Supple. HEART: Showed normal first and second heart sounds. No gallop or murmur. CHEST: Clear to auscultation. No crepitation or rhonchi. ABDOMEN: Distended, soft, nontender. NEUROLOGIC: She is awake, alert, responding appropriately. All cranial nerves intact. She moves extremities without difficulty. She ambulates with a walker. LABORATORY DATA: Her most recent lab work showed hemoglobin of 8, hematocrit 24, and her chemistry showed a serum sodium 137, potassium 4.1, chloride 101, bicarbonate 29, anion gap of 7, BUN 44, creatinine 1.7, estimated GFR was 28 mL per minute. Her glucose was 83, calcium was 8.4. DISCHARGE MEDICATIONS: She was discharged home with home health to continue on amiodarone 200 mg twice a day, apixaban 2.5 mg twice a day and furosemide 40 mg once a day. She should continue also on brimonidine tartrate, timolol or Combigan eye drops 1 drop to both eyes twice a day, cholecalciferol, vitamin D3 2000 international unit once a day, estrogen for Premarin 0.625 mg as needed for itching, flecainide acetate 75 mg twice a day, glucosamine for Boswellia for Osteo Bi-Flex 1 tablet twice a day, omeprazole 40 mg once a day, oxycodone/APAP 5/325 one tablet every 4 hours as needed, pravastatin sodium 40 mg at bedtime. FINAL DISCHARGE DIAGNOSES: 1. Traumatic fall with sacral fracture, status post bilateral sacroplasty and left acetabular fracture as well as left shoulder avascular necrosis. We did consult Dr. Viera who did not recommend any surgical intervention. 2. Paroxysmal atrial fibrillation, for which she underwent cardioversion recently. She is currently on Eliquis and amiodarone. She has multiple other medical problems including hypertension, hyperlipidemia, coronary artery disease, clinically stable, chest pain free. 3. Acute on chronic diastolic congestive heart failure, acute on chronic kidney injury that has improved. 4. Anemia. The patient is back on Eliquis. 5. Chronic hypoxic respiratory failure, for which she will do a 6-minute walk and will be discharged home with our home oxygen. TOSHA CHANEY MD DR: MC/marie JOB#: [id number] / [id number]
[2019-02-08] MEDS ORDERED: ACET325T21 PO (22:17)
[2019-02-08] MEDS ORDERED: NYST1POW5 MC (22:17)
[2019-02-08] MEDS ORDERED: VITS42.55 TP (22:17)
[2019-02-14] MEDS ORDERED: AMIO200T4 PO (12:01)
[2019-02-14] MEDS ORDERED: CARV6.2511 PO (12:04)
[2019-02-14] MEDS ORDERED: LORA0.5T96 PO (12:06)
== END 2019-02-05 16:52 | disposition home health service (06) | DRG 515 ==
LOC: 4 NORTH 11:12
PROVIDERS: ADMIT Internal Medicine; ATTEND Internal Medicine
PROC: 0QU13JZ Supplement Sacrum with Synthetic Substitute, Percutaneous Approach (ICD-10-PCS; principal; 2019-01-30)
DX: M80.852A Other osteoporosis with current pathological fracture, left femur, initial encounter for fracture (principal); I50.43 Acute on chronic combined systolic (congestive) and diastolic (congestive) heart failure; N17.9 Acute kidney failure, unspecified; D68.9 Coagulation defect, unspecified; I13.0 Hypertensive heart and chronic kidney disease with heart failure and stage 1 through stage 4 chronic kidney disease, or unspecified chronic kidney disease; I42.9 Cardiomyopathy, unspecified; J96.11 Chronic respiratory failure with hypoxia; E87.1 Hypo-osmolality and hyponatremia; M87.812 Other osteonecrosis, left shoulder; D50.9 Iron deficiency anemia, unspecified; L89.90 Pressure ulcer of unspecified site, unspecified stage; R29.6 Repeated falls; K21.9 Gastro-esophageal reflux disease without esophagitis; K57.90 Diverticulosis of intestine, part unspecified, without perforation or abscess without bleeding; M19.90 Unspecified osteoarthritis, unspecified site; N30.20 Other chronic cystitis without hematuria; E78.5 Hyperlipidemia, unspecified; N18.3 Chronic kidney disease, stage 3 (moderate); I25.10 Atherosclerotic heart disease of native coronary artery without angina pectoris; I48.0 Paroxysmal atrial fibrillation; I49.5 Sick sinus syndrome; Z96.643 Presence of artificial hip joint, bilateral; Z98.42 Cataract extraction status, left eye; Z98.41 Cataract extraction status, right eye; Z95.0 Presence of cardiac pacemaker; Z82.3 Family history of stroke; Z82.0 Family history of epilepsy and other diseases of the nervous system; Z80.0 Family history of malignant neoplasm of digestive organs; Z79.01 Long term (current) use of anticoagulants; M80.851A Other osteoporosis with current pathological fracture, right femur, initial encounter for fracture
CPT/HCPCS: 22511; 36415; 71045; 80048; 80053; 82274; 82728; 83540; 83550; 83880; 85014; 85018; 85025; 85027; 85610; 85730; 93005; 94618; 99152; 99153; C1713; J0690; J0696; J1940; J2250; J2405; J3010; 97110; 97116; 97530; 97535; G0378